=== PATIENT | male | born 1960 | race American Indian/Alaskan Native ===

== ENCOUNTER 2017-02-02 07:17 | Inpatient (IN) | payer OTHER ==
[2017-02-02] MEDS ORDERED: NACL 0.9% 1000 ML 1,000 ML ONE ×4 (07:37→13:58)
[2017-02-02] MEDS ORDERED: NACL 0.9% 1000 ML 1,000 ML IV SCH (08:00)
[2017-02-02 08:01] LABS: Basophils % (Auto) 0.9 % (0.0-1.8); Eosinophils % (Auto) 1.1 % (0.0-4.3); Hematocrit 45.1 % (35.5-45.6); Hemoglobin 14.9 gm/dl (11.8-15.2); Mean Corpuscular HGB Conc 33 % (32-34); Mean Corpuscular Hemoglobin 29 pg (28-32); Mean Corpuscular Volume 87 fl (84-94); Platelet Count 179 K/mm3 (140-440); Red Blood Count 5.17 M/mm3 (3.65-5.03); Red Cell Distribution Width 15.2 % (13.2-15.2); White Blood Count 7.7 K/mm3 (4.5-11.0)
[2017-02-02 08:13] LABS: Anion Gap 21 mmol/L; BUN/Creatinine Ratio 8.46; Blood Urea Nitrogen 11 mg/dL (9-20); Calcium 8.7 mg/dL (8.4-10.2); Carbon Dioxide 21 mmol/L (22-30); Chloride 105.9 mmol/L (98-107); Glucose 156 mg/dL (75-100); INR 0.98 (0.87-1.13); Partial Thromboplastin Time 27.2 Sec. (24.2-36.6); Sodium 144 mmol/L (137-145)
--- NOTE | 2017-02-02 08:35 | Admit Criteria Form ---
Admission Criteria Documentation: PULMONARY EMBOLISM Clinical Indications for Admission to Inpatient Care (Place 'X' for any and all applicable criteria): Admission is indicated for 1 or more of the following(1)(2)(3)(4)(5)(6)(7) [ ]I. Hypoxemia [ ]II. Vital sign abnormality (8) indicated by ALL of the following: [ ]a) Vital sign findings not as expected for chronic patient condition or baseline (eg, intentionally low, blood pressure in heart failure) [ ]b) Vital sign abnormality as indicated by 1 or more of the following [ ]l) Tachycardia [ ]ll) Hypotension [ ]lll) Orthostatic vital sign changes [ ]III. History of cancer [ ]IV. History of chronic cardiopulmonary disease (eg. CHF, coronary artery disease, COPD, cor pulmonale) [ ]V. Cardiac arrhythmias of intermediate concern [ ]. Right ventricular dysfunction (eg, by echocardiogram) [X ]VII. Positive cardiac biomarker (eg, troponin T or I > 0.1 ng/mL (mcg/L) , highly sensitive troponin I assay greater than 0.014 ng/mL (mcg/L), BNP or NT proBNP > assay threshold)(8 )(10)(11) [ ]VIII. Need for IV narcotics (eg, to treat dyspnea) 1 or more of following: [ ]a) Bleeding before anticoagulation [ ]b) Recent surgery (eg, within 3 months) that increases risk of catastrophic bleeding (eg, spinal surgery, intracranial surgery, cardiovascular surgery) [ ]c) Recent GI bleeding (eg, within 3 months) or known increased risk of GI bleed (eg,esophageal varices, current ulcer) [ ]d) Recent (eg, within 3 months) ischemic stroke [ ]e) History of intracranial bleeding (eg, hemorrhagic stroke) [ ]f) History of active bleeding when anticoagulated [ ]g) Active substance abuse [ ]h) Other risk factor thought to place patient at high risk such that ability to rapidly reverse reversal agent) [ ]X. Documented extensive thrombosis (eg, clot in vena cava or above iliofemoral bifurcation) [ X]Xl. Thrombolysis (eg, catheter-directed) or pharmacomechanical thrombectomy needed[A][B](8) [ ]XIl. Vena cava filter placement needed (eg, unable to anticoagulate)[C](8) [ ]Xlll. with delivery planned (eg, 37 or more weeks' gestation)(14 ) [ ]XlV. Limb-threatening thrombosis (eg, phlegmasia cerula dolens) [ ]XV. Embolism while on anti-coagulation [ ]XVl. Contraindication to outpatient use of medication with rapid anticoagulation effect as indicated by ALL of the following: [ ] a) Contraindication to use of yop-naoirfmxs-puxcrr heparin[E][F ] indicated by 1 or more of the following(16): [ ] i) Documented current or history of heparin-induced thrombocytopenia(15) [ ] ii) Severe thrombocytopenia (eg, platelet count less than 50 ,000/mm3 (50 x109/L)) [ ] iii) Allergy to heparin, ovn-defscgkjx-fpqkrd heparin, or product component [ ] iv) Renal failure (creatinine clearance less than 30 mL/min/ 1.73m2 (0.50 mL/sec/1.73m2) or on dialysis) [ ] v) Need for neuraxial anesthesia or spinal puncture anticipated [ ] vi) Inability to manage self-injection (eg. By patient, caregiver, or visiting nurse) [ ] b) Contraindication to use of fondaparinux indicated by 1 or more of the following: [ ] i) Documented current or history of heparin-induced thrombocytopenia (15) [ ] ii) Severe thrombocytopenia (eg, platelet count less than 50 ,000/mm3 (50 x109/L)) [ ] iii) Allergy to fondaparinux, related drugs, or product components [ ] iv) Renal failure (creatinine clearance less than 30 mL/min/ 1.73m2 (0.50 mL/sec/1.73m2) or on dialysis) [ ] v) [ ] vi) Liver disease with coagulopathy (eg, elevated INR due to liver disease) [ ] vii) Mechanical heart valve [ ] viii) Need for neuraxial anesthesia or spinal puncture anticipated [ ] xi) Inability to manage self-injection (eg, by patient, caregiver, or visiting nurse) [ ] c) Contraindication to use of an oral direct thrombin inhibitor (eg, dabigatran) or an oral coagulation factor Xa inhibitor (eg, rivaroxaban, apixaban)[E][F] indicated by 1 or more of the following(17)(18): [ ] i) Severe thrombocytopenia (eg, platelet count less than 50, 000/mm3 (50 x109/L)) [ ] ii) Allergy to medication or product components x109/L)) [ ] iii) Renal failure (creatinine clearance less than 30 mL/min /1.73m2 (0.50 mL/sec/1.73m2) or on dialysis) [ ] iv) [ ] v) Liver disease with coagulopathy (eg, elevated INR due to liver disease) [ ] vi) Mechanical heart valve [ ] vii) Need for neuraxial anesthesia or spinal puncture anticipated [ ]XVll. Inpatient admission required rather than observation care (Also use Pulmonary Embolism: Observation Care guideline as appropriate) because of ANY ONE of the following: [ ] a) Significant autoimmune (thrombocytopenia) or coagulopathic reaction occurs in response to anticoagulation [ ] b) Respiratory symptoms (eg, tachypnea, dyspnea) that are severe or persistent [ ] c) Other condition, treatment, or monitoring requiring inpatient admission The original [employer] content created by [employer] has been revised. The portions of the content which have been revised are identified through the use of italic text or in bold, and [facility] has neither reviewed nor approved the modified material. All other unmodified content is copyright [facility]. Please see references footnoted in the original [facility] edition 2017
--- NOTE | 2017-02-02 08:55 | Emergency Department Report ---
ED Chest Pain HPI - General Chief Complaint: Chest Pain Stated Complaint: CHEST PAIN Time Seen by Provider: 02/02/17 08:17 Source: patient Mode of arrival: Wheelchair Limitations: No Limitations - History of Present Illness Initial Comments: This is a 56-year-old -[place] male presents the emergency department, driven in by his daughter, with complaint of left-sided chest pain that began this morning around 2 AM. It is associated with coughing, shortness of breath and some dizziness. The dizziness started later, around 6:30 AM, once the patient got up to try and walk around. He did not take anything for symptoms prior to presentation. He is a tobacco smoker. He has a past medical history of gout, hypertension and a TIA. He does not have a primary care doctor. No recent travel or sick contacts at home. He denies any history of [place], PE/DVT. Severity scale (0 -10): 10 - Related Data Home Medications Medication Instructions Recorded Confirmed Last Taken Lisinopril [Zestril TAB] 40 mg PO DAILY 09/29/13 02/02/17 02/01/17 Ascorbic Acid [Vitamin C] 500 mg PO QDAY 02/02/17 02/02/17 02/01/17 Calcium Carbonate [Calcium] 600 mg PO DAILY 02/02/17 02/02/17 02/01/17 Lactobacillus Acidophilus 1 each PO DAILY 02/02/17 02/02/17 02/01/17 [Probiotic] Methylcellulose [Fiber] 500 mg PO DAILY 02/02/17 02/02/17 02/01/17 Vitamin E (Dl,Tocopheryl Acet) 100 unit PO DAILY 02/02/17 02/02/17 02/01/17 [Vitamin E] amLODIPine [Norvasc] 10 mg PO DAILY 02/02/17 02/02/17 02/01/17 Allergies Allergy/AdvReac Type Severity Reaction Status Date / Time No Known Allergies Allergy Verified 02/02/17 07:29 Heart Score - HEART Score History: Moderately suspicious EKG: Non-specific Age: 45-65 Risk factors: 1-2 risk factors Troponin: < normal limit HEART Score: 4 - Critical Actions Critical Actions: 4-6 pts:12-16.6% risk of adverse cardiac event. Should be admitted ED Review of Systems ROS: Stated complaint: CHEST PAIN Other details as noted in HPI Comment: All other systems reviewed and negative Constitutional: denies: chills, fever Eyes: denies: eye pain, eye discharge, vision change ENT: denies: ear pain, throat pain Respiratory: shortness of breath. denies: cough Cardiovascular: chest pain. denies: palpitations Gastrointestinal: denies: abdominal pain, nausea, diarrhea Genitourinary: denies: urgency, dysuria Musculoskeletal: denies: back pain, joint swelling, arthralgia Skin: denies: rash, lesions Neurological: other (dizziness). denies: headache, weakness, paresthesias ED Past Medical Hx - Past Medical History Hx Hypertension: Yes Additional medical history: gout. TIA - Surgical History Past Surgical History?: No - Social History Smoking Status: Current Every Day Smoker Substance Use Type: None - Medications Home Medications: Home Medications Medication Instructions Recorded Confirmed Last Taken Type Lisinopril [Zestril TAB] 40 mg PO DAILY 09/29/13 02/02/17 02/01/17 History Ascorbic Acid [Vitamin C] 500 mg PO QDAY 02/02/17 02/02/17 02/01/17 History Calcium Carbonate [Calcium] 600 mg PO DAILY 02/02/17 02/02/17 02/01/17 History Lactobacillus Acidophilus 1 each PO DAILY 02/02/17 02/02/17 02/01/17 History [Probiotic] Methylcellulose [Fiber] 500 mg PO DAILY 02/02/17 02/02/17 02/01/17 History Vitamin E (Dl,Tocopheryl Acet) 100 unit PO DAILY 02/02/17 02/02/17 02/01/17 History [Vitamin E] amLODIPine [Norvasc] 10 mg PO DAILY 02/02/17 02/02/17 02/01/17 History ED Physical Exam - General Limitations: No Limitations - Other Other exam information: GENERAL: The patient is well-developed well-nourished. HEENT: Normocephalic. Atraumatic. Extraocular motions are intact. Patient has moist mucous membranes. Pupils equal reactive to light bilaterally. NECK: Supple. Trachea is midline. CHEST/LUNGS: Clear to auscultation. There is no respiratory distress noted. Chest pain is not reproducible to palpation of the chest wall. HEART/CARDIOVASCULAR: Regular. There is no tachycardia. There is no gallop rub or murmur. ABDOMEN: Abdomen is soft, nontender. Patient has normal bowel sounds. There is no abdominal distention. SKIN: Skin is warm and dry. NEURO: The patient is awake, alert, and oriented. The patient is cooperative. The patient has no focal neurologic deficits. The patient has normal speech. MUSCULOSKELETAL: There is no tenderness or deformity. There is no limitation range of motion. There is no evidence of acute injury. ED Course Vital Signs 02/02/17 02/02/17 07:31 07:54 Temperature 97.5 F L 98.4 F Pulse Rate 94 H 94 H Respiratory 22 14 Rate Blood Pressure 90/63 Blood Pressure 89/68 [Left] O2 Sat by Pulse 92 95 Oximetry - Consultations Consultation #1: 02/02/17 11:[address] Brown, the vascular/IR attending, who will come and see the patient in the emergency department and may proceed to ECOS catheter. DAWOOD score - Dawood Score Age > 65: (0) No Aspirin use within the Past 7 Days: (0) No 3 or more CAD Risk Factors: (0) No 2 or more Angina events in past 24 hrs: (1) Yes Known CAD with more than 50% Stenosis: (0) No Elevated Cardiac Markers: (0) No ST Deviation Greater than 0.5mm: (0) No DAWOOD Score: 1 ED Medical Decision Making - Lab Data Result diagrams: 02/02/17 07:39 02/02/17 07:44 - EKG Data -: EKG Interpreted by Me EKG shows normal: sinus rhythm, axis (left axis deviation), intervals, QRS complexes (Q waves to the anterior and inferior leads), ST-T waves (T-wave inversion to the inferior leads) Rate: normal - EKG Data When compared to previous EKG there are: previous EKG unavailable Interpretation: other (sinus rhythm, LVH, Q waves to the anterior and inferior leads, T-wave inversions to the inferior leads) - Radiology Data Radiology results: report reviewed, image reviewed interpreted by me: Chest x-ray did not show any acute process. Heart is normal shape and size. No effusions. No pneumothorax. No signs of pneumonia seen. CT angiography of the chest shows extensive bilateral pulmonary emboli extending to the first and second order branches of all lobes. Saddle embolus is also identified. These emboli are nearly occlusive in the lower lobes. - Medical Decision Making 56-year-old male presents with chest pain and shortness of breath that started this morning around 2 AM. He also has been having some dizziness. EKG does not show any signs of ST elevation [place]. First troponin negative. However the d- dimer is very elevated. CT angiography was done that showed bilateral pulmonary emboli and saddle embolus. Vascular surgery/INR was contacted who took the patient for the EKOS catheter in the [facility]. Patient admitted to the hospitalist and accepted by Dr. Limon. - Differential Diagnosis [place], PE, pneumonia, CHF Critical Care Time: No Critical care attestation.: If time is entered above; I have spent that time in minutes in the direct care of this critically ill patient, excluding procedure time. ED Disposition Clinical Impression: Bilateral pulmonary embolism Saddle embolism of pulmonary artery Qualifiers: Chronicity: acute Acute cor pulmonale presence: without acute cor pulmonale Qualified Code(s): I26.92 - Saddle embolus of pulmonary artery without acute cor pulmonale Chest pain Qualifiers: Chest pain type: unspecified Qualified Code(s): R07.9 - Chest pain, unspecified Disposition: DC-09 OP ADMIT IP TO THIS HOSP Is pt being admited?: Yes Condition: Fair
--- NOTE | 2017-02-02 09:06 | XRay Report ---
AP CHEST: HISTORY: chest pain AP view of the chest demonstrates a normal mediastinal and cardiac contour with clear lungs and normal bony and soft tissue structures. IMPRESSION: Unremarkable AP chest.
--- NOTE | 2017-02-02 10:48 | Cat Scan Report ---
CTA CHEST: History: Chest pain, shortness of breath Technique: Helical CT following IV contrast. Pulmonary embolus protocol. Sagittal and coronal reformatted images. Rotational MIP images. Findings: Contrast bolus is satisfactory. Extensive bilateral pulmonary emboli are identified extending to the first and second order branches of all lobes. Saddle embolus is also identified. These emboli or nearly occlusive in the lower lobes. The thyroid gland, tracheobronchial tree, esophagus, heart, pericardium, aorta, lung carty and bony thorax are unremarkable. Impression: Positive for extensive bilateral pulmonary emboli as described. These findings were discussed with Dr. Smart in the emergency department at 1045 hrs.
[2017-02-02] MEDS ORDERED: HEPARIN 10,000 UNITS/10 ML IV ONE (10:57)
[2017-02-02] MEDS ORDERED: HEPARIN/ 0.45% NACL-25,000 UNIT/500 ML 25,000 UNITS/500 ML BAG IV SCH (11:00)
[2017-02-02 11:40] LABS: INR 1.04 (0.87-1.13)
[2017-02-02 11:41] LABS: Partial Thromboplastin Time 28.3 Sec. (24.2-36.6)
[2017-02-02] MEDS ORDERED: ALUM-MAG HYDROX-SIMETH 200-200-20MG/5ML PO PRN (12:29)
[2017-02-02] MEDS ORDERED: MILK OF MAGNESIA PO PRN (12:29)
[2017-02-02] MEDS ORDERED: DULCOLAX PR PRN (12:29)
[2017-02-02] MEDS ORDERED: DUONEB *Not for PRN Use IH (12:29)
--- NOTE | 2017-02-02 12:35 | History and Physical Report ---
History of Present Illness Chief complaint: It hurts when i breathe, and now my chest hurts History of present illness: 56 YO Male with HTN, Gout, CVA, Nicotine Dependence presents to ED for evaluation. Pt states that he experienced difficulty breathing, and pain in his chest that began around 0200hrs that awoke him from sleep with worsening symptoms over the past 4 hours. Pt presents to ED for evaluation. Pt states that pain is 8/10, localized to the left side, worse with deep breathing, not worsened with exertion, or relieved with rest. Pt seen and evaluated in ED and found to be in respiratory distress. Pt placed on supplemental oxygen. Pt underwent CT angio chest which revealed large Bilateral PE, and evidence of heart strain. Vascular team consulted, and patient taken to [facility] for EKOS therapy. Past History Past Medical History: hypertension, stroke Past Surgical History: No surgical history, Other (reviewed) Social history: , lives with family, smoking Family history: diabetes, hypertension Medications and Allergies Allergies Allergy/AdvReac Type Severity Reaction Status Date / Time No Known Allergies Allergy Verified 02/02/17 07:29 Home Medications Medication Instructions Recorded Confirmed Last Taken Type Lisinopril [Zestril TAB] 40 mg PO DAILY 09/29/13 02/02/17 02/01/17 History Ascorbic Acid [Vitamin C] 500 mg PO QDAY 02/02/17 02/02/17 02/01/17 History Calcium Carbonate [Calcium] 600 mg PO DAILY 02/02/17 02/02/17 02/01/17 History Lactobacillus Acidophilus 1 each PO DAILY 02/02/17 02/02/17 02/01/17 History [Probiotic] Methylcellulose [Fiber] 500 mg PO DAILY 02/02/17 02/02/17 02/01/17 History Vitamin E (Dl,Tocopheryl Acet) 100 unit PO DAILY 02/02/17 02/02/17 02/01/17 History [Vitamin E] amLODIPine [Norvasc] 10 mg PO DAILY 02/02/17 02/02/17 02/01/17 History Active Meds: Active Medications Al Hydrox/Mg Hydrox/Simethicone (Alum-Mag Hydrox-Simeth [id number]/5ml) 30 ml PO Q4H PRN PRN Reason: Indigestion Albuterol/Ipratropium (Duoneb 0.5 Mg-3 Mg/3 Ml Soln) 1 ampul IH Q6HRT PRN PRN Reason: Wheezing Amlodipine Besylate (Norvasc) 10 mg PO DAILY [facility] Ascorbic Acid (Vitamin C) 500 mg PO QDAY [facility] Bisacodyl (Dulcolax) 10 mg SD QDAY PRN PRN Reason: constipation unrelieved by MOM Hydromorphone HCl (Dilaudid) 0.25 mg IV Q3H PRN PRN Reason: Pain, Moderate (4-6) Sodium Chloride (Nacl 0.9% 1000 Ml) 1,000 mls @ 100 mls/hr IV DIRECT [facility] Heparin Sodium/Sodium Chloride (Heparin/ 0.45% Nacl-25,000 Unit/500 Ml) 25,000 units in 500 mls @ 30 mls/hr IV TITR [facility]; 1,500 UNITS/HR PRN Reason: Protocol Last Admin: 02/02/17 11:28 Dose: 1,500 units/hr, 30 mls/hr Lisinopril (Zestril) 40 mg PO DAILY [facility] Magnesium Hydroxide (Milk Of Magnesia) 30 ml PO Q4H PRN PRN Reason: Constipation Miscellaneous Medication (Lactobacillus Acidophilus [Probiotic]) 1 each PO DAILY [facility] Miscellaneous Medication (Methylcellulose [Fiber]) 500 mg PO DAILY [facility] Miscellaneous Medication (Vitamin E (Dl,Tocopheryl Acet) [Vitamin E]) 100 unit PO DAILY [facility] Review of Systems All systems: negative Cardiovascular: shortness of breath Exam - Constitutional Vitals: Temp Pulse Resp BP Pulse Ox 97.9 F 92 H 21 118/80 94 02/02/17 10:30 02/02/17 11:30 02/02/17 11:30 02/02/17 11:30 02/02/17 11:30 General appearance: Present: mild distress - EENT Eyes: Present: PERRL ENT: hearing intact, clear oral mucosa - Neck Neck: Present: supple, normal ROM - Respiratory Respiratory effort: normal Respiratory: bilateral: diminished - Cardiovascular Heart Sounds: Present: S1 & S2. Absent: rub, click - Extremities Extremities: pulses symmetrical, No edema Peripheral Pulses: within normal limits - Abdominal General gastrointestinal: Present: soft, non-tender, non-distended, normal bowel sounds Male genitourinary: Present: normal - Integumentary Integumentary: Present: clear, warm, dry - Musculoskeletal Musculoskeletal: gait normal, strength equal bilaterally - Psychiatric Psychiatric: appropriate mood/affect, intact judgment & insight - Neurologic Neurologic: CNII-XII intact, moves all extremities Results - Labs CBC & Chem 7: 02/02/17 19:28 02/03/17 02:57 Labs: Abnormal lab results 02/02/17 02/02/17 02/02/17 Range/Units 07:39 07:44 07:44 RBC 5.17 H (3.65-5.03) M/mm3 D-Dimer 3273.92 H (0-234) ng/mlDDU Carbon Dioxide 21 L (22-30) mmol/L Glucose 156 H (75-100) mg/dL POC Glucose (70-105) 02/02/17 Range/Units 07:50 RBC (3.65-5.03) M/mm3 D-Dimer (0-234) ng/mlDDU Carbon Dioxide (22-30) mmol/L Glucose (75-100) mg/dL POC Glucose 157 H (70-105) Assessment and Plan - Patient Problems (1) Acute respiratory failure with hypoxemia Current Visit: Yes Status: Acute Plan to address problem: supplemental oxygen, nebs, aspiration precautions, pulmonary consulted, NIPPV as clinically indicated. The high probability of a clinically significant, sudden or life threatening deterioration of the [pulmonary, cardiac] system(s) required my full and direct attention, intervention and personal management. The aggregate critical care time was [65] minutes. This time is in addition to time spent performing reported procedures but includes the following: [x] Data Review and interpretation [x] Patient assessment and monitoring of vital signs [x] Documentation [x] Medication orders and management (2) HTN (hypertension) Current Visit: Yes Status: Acute Qualifiers: Hypertension type: H Plan to address problem: Monitor bp q shift, resume home medication (3) Nicotine dependence Current Visit: Yes Status: Acute Qualifiers: Nicotine product type: N Substance use status: in withdrawal Plan to address problem: Pt counseled, (4) Gout Current Visit: Yes Status: Acute Qualifiers: Gout site: G Gout etiology: G Encounter type: E Chronicity: C Laterality: L Presence of tophus: P Plan to address problem: pain control, supportive care. (5) Bilateral pulmonary embolism Current Visit: Yes Status: Acute Plan to address problem: S/P EKOS therapy, IR consulted, heparin drip, (6) DVT prophylaxis Current Visit: Yes Status: Acute
[2017-02-02] MEDS ORDERED: PROVENTIL IH PRN (12:40)
[2017-02-02] MEDS ORDERED: HEPARIN/ 0.45% NACL-25,000 UNIT/500 ML 25,000 UNIT/500 ML BAG ONE ×2 (12:51→13:04)
[2017-02-02] MEDS ORDERED: XYLOCAINE 2% INFILTRATI ONE (12:52)
[2017-02-02] MEDS ORDERED: HEPARIN 10,000 UNITS/10 ML ONE (12:52)
[2017-02-02] MEDS ORDERED: ANCEF/STERILE WATER 2 GM/20 ML 2 GM/20 ML SYRINGE IV ONE (12:53)
[2017-02-02] MEDS ORDERED: HEPARIN/NS 5000 UNIT/500ML(CATH LAB) 1,000 ML IR ONE (12:55)
--- NOTE | 2017-02-02 13:08 | Consultation ---
History of Present Illness - Reason for Consult Consult date: 02/02/17 - History of Present Illness This is a 56-year-old male who began to feel left-sided chest pain, shortness of breath, and dizziness around 2:00 this morning. He denies ever having this type of sensation before. He came to the ER, and CT angiography revealed a large saddle pulmonary embolus with extension into the segmental branches on both sides. His currently hemodynamically stable. His main complaint is chest pain, especially during inspiration. He is currently not on any type of anticoagulation at home. He denies history of hemorrhagic stroke or gastrointestinal bleeding. He also denies history of clotting disorders. Medications and Allergies Allergies Allergy/AdvReac Type Severity Reaction Status Date / Time No Known Allergies Allergy Verified 02/02/17 07:29 Home Medications Medication Instructions Recorded Confirmed Last Taken Type Lisinopril [Zestril TAB] 40 mg PO DAILY 09/29/13 02/02/17 02/01/17 History Ascorbic Acid [Vitamin C] 500 mg PO QDAY 02/02/17 02/02/17 02/01/17 History Calcium Carbonate [Calcium] 600 mg PO DAILY 02/02/17 02/02/17 02/01/17 History Lactobacillus Acidophilus 1 each PO DAILY 02/02/17 02/02/17 02/01/17 History [Probiotic] Methylcellulose [Fiber] 500 mg PO DAILY 02/02/17 02/02/17 02/01/17 History Vitamin E (Dl,Tocopheryl Acet) 100 unit PO DAILY 02/02/17 02/02/17 02/01/17 History [Vitamin E] amLODIPine [Norvasc] 10 mg PO DAILY 02/02/17 02/02/17 02/01/17 History Active Meds: Active Medications Al Hydrox/Mg Hydrox/Simethicone (Alum-Mag Hydrox-Simeth [id number]/5ml) 30 ml PO Q4H PRN PRN Reason: Indigestion Albuterol (Proventil) 2.5 mg IH Q4HRT PRN PRN Reason: Shortness Of Breath Amlodipine Besylate (Norvasc) 10 mg PO DAILY [facility] Ascorbic Acid (Vitamin C) 500 mg PO QDAY [facility] Bisacodyl (Dulcolax) 10 mg CA QDAY PRN PRN Reason: constipation unrelieved by MOM Hydromorphone HCl (Dilaudid) 0.25 mg IV Q3H PRN PRN Reason: Pain, Moderate (4-6) Sodium Chloride (Nacl 0.9% 1000 Ml) 1,000 mls @ 100 mls/hr IV DIRECT [facility] Heparin Sodium/Sodium Chloride (Heparin/ 0.45% Nacl-25,000 Unit/500 Ml) 25,000 units in 500 mls @ 30 mls/hr IV TITR [facility]; 1,500 UNITS/HR PRN Reason: Protocol Last Admin: 02/02/17 11:28 Dose: 1,500 units/hr, 30 mls/hr Lisinopril (Zestril) 40 mg PO DAILY [facility] Magnesium Hydroxide (Milk Of Magnesia) 30 ml PO Q4H PRN PRN Reason: Constipation Miscellaneous Medication (Lactobacillus Acidophilus [Probiotic]) 1 each PO DAILY [facility] Miscellaneous Medication (Methylcellulose [Fiber]) 500 mg PO DAILY [facility] Miscellaneous Medication (Vitamin E (Dl,Tocopheryl Acet) [Vitamin E]) 100 unit PO DAILY [facility] Exam - Constitutional Vitals: Temp Pulse Resp BP Pulse Ox 97.9 F 92 H 21 118/80 94 02/02/17 10:30 02/02/17 11:30 02/02/17 11:30 02/02/17 11:30 02/02/17 11:30 Results - Labs CBC & Chem 7: 02/02/17 07:39 02/02/17 07:44 Labs: Abnormal lab results 02/02/17 02/02/17 02/02/17 Range/Units 07:39 07:44 07:44 RBC 5.17 H (3.65-5.03) M/mm3 D-Dimer 3273.92 H (0-234) ng/mlDDU Carbon Dioxide 21 L (22-30) mmol/L Glucose 156 H (75-100) mg/dL POC Glucose (70-105) Troponin T (0.00-0.029) ng/mL 02/02/17 02/02/17 Range/Units 07:50 10:42 RBC (3.65-5.03) M/mm3 D-Dimer (0-234) ng/mlDDU Carbon Dioxide (22-30) mmol/L Glucose (75-100) mg/dL POC Glucose 157 H (70-105) Troponin T 0.035 H D (0.00-0.029) ng/mL Assessment and Plan This is a 56-year-old male with a large saddle pulmonary embolus extending into the segmental branches bilaterally. He is currently hemodynamically stable. The combination of imaging findings and current symptoms of coughing, pleuritic chest pain, and shortness of breath warrant treatment with ultrasound assisted thrombolysis. We will proceed to Ekos catheter placement. Informed consent was obtained.
[2017-02-02] MEDS: SUBLIMAZE ONE ×2 (13:12→13:41)
[2017-02-02] MEDS: VERSED ONE ×2 (13:12→13:41)
[2017-02-02] MEDS ORDERED: CATHFLO ONE (13:19)
[2017-02-02] MEDS ORDERED: WATER FOR INJ (PF) 10 ML ONE (13:20)
[2017-02-02] MEDS ORDERED: ZOFRAN IV PRN (14:19)
--- NOTE | 2017-02-02 14:28 | Operative Report ---
Operative Report Operative Report: Procedure: 1. Ultrasound-guided access of the right common femoral vein. 2. Selective left and right pulmonary angiography. 3. Placement of bilateral EKos ultrasonic infusion catheters. Date of procedure: 02/02/2017 Physician: Fco Ruiz MD Indication: This is a 56-year-old male who experienced chest pain and shortness of breath at 2:[address] angiography revealed a large saddle pulmonary embolus with extension into the segmental branches. Procedure: The patient was placed in the supine position and prepped and draped in the usual sterile fashion. A timeout was performed. Local anesthesia was administered. Under continuous ultrasound guidance, the right common femoral vein was cannulated with an 18-gauge needle. This was exchanged over a short 035 wire for a 6 Lao vascular sheath. A second vascular sheath was placed in a similar fashion approximately half a centimeter below the first one. The combination of a JR 4 catheter and Darden wire was advanced into the right ventricle and ultimately used to select the left main pulmonary artery. Left pulmonary arteriography was performed from multiple positions. The JR4 catheter was then replaced with the EKos IDDC catheter. The micro-sonic delivery catheter was then inserted and secured. A similar combination of steps was performed through the second vascular sheath for the right pulmonary artery. Both vascular sheaths and the IDDC catheters were secured to the skin and to each other with 2-0 Ethilon suture and Steri-Strips. A 4 mg bolus of TPA was infused into each catheter. Heparin flush was infused into each femoral sheath. Sterile dressings were applied, and the patient was transferred off the table in stable condition. Findings: Pulmonary arteriography demonstrates multiple, large filling defects in both the right and left pulmonary arteries, extending into the segmental branches. This is consistent with findings on a recent CT angiography from earlier today. There is successful placement of bilateral EKos catheters in the pulmonary arteries.
[2017-02-02] MEDS ORDERED: CATHFLO 10 MG in NACL 0.9% 250ML 250 ML EKOSDLUMEN SCH (15:00)
[2017-02-02] MEDS ORDERED: NACL 0.9% 1000 ML 1,000 ML EKOSCLUMEN SCH ×2 (15:00)
[2017-02-02] MEDS ORDERED: HEPARIN/ 0.45% NACL-25,000 UNIT/500 ML 25,000 UNIT/500 ML BAG SHEATH SCH ×2 (15:00)
[2017-02-02] MEDS ORDERED: NACL 0.9% 1000 ML 1,000 ML SHEATH SCH ×2 (15:00)
[2017-02-02] MEDS ORDERED: CATHFLO 10 MG in NACL 0.9% 250ML 250 ML IV SCH (15:00)
[2017-02-02] MEDS: NACL 0.9% 1000 ML 1,000 ML IV SCH ×2 (15:13→18:14)
[2017-02-02] MEDS ORDERED: NORCO 5/325 ONE (15:48)
[2017-02-02 15:50] LABS: Anion Gap 19 mmol/L; Basophils % (Auto) 0.7 % (0.0-1.8); Blood Urea Nitrogen 9 mg/dL (9-20); Calcium 8.9 mg/dL (8.4-10.2); Carbon Dioxide 23 mmol/L (22-30); Chloride 105.4 mmol/L (98-107); Eosinophils % (Auto) 0.2 % (0.0-4.3); Glucose 119 mg/dL (75-100); Hematocrit 46.7 % (35.5-45.6); Hemoglobin 15.4 gm/dl (11.8-15.2); Mean Corpuscular HGB Conc 33 % (32-34); Mean Corpuscular Hemoglobin 29 pg (28-32); Mean Corpuscular Volume 88 fl (84-94); Platelet Count 165 K/mm3 (140-440); Potassium 4.4 mmol/L (3.6-5.0); Red Blood Count 5.32 M/mm3 (3.65-5.03); Red Cell Distribution Width 15.4 % (13.2-15.2); Sodium 143 mmol/L (137-145); White Blood Count 9.5 K/mm3 (4.5-11.0)
[2017-02-02] MEDS: NORCO 5/325 PO PRN ×2 (15:52→21:49)
[2017-02-02 15:59] LABS: INR 1.14 (0.87-1.13)
[2017-02-02] MEDS: ZESTRIL PO SCH (17:02)
[2017-02-02] MEDS: NORVASC PO SCH (17:04)
--- NOTE | 2017-02-02 17:42 | Vascular Lab Report ---
MISCELLANEOUS VESSEL IDENTIFICATION: COMMENTS ON THE SCAN: The right common femoral vein was identified and under real-time ultrasound guidance was cannulated. IMPRESSION: Successful ultrasound guided vein cannulation.
[2017-02-02 20:03] LABS: Basophils % (Auto) 0.4 % (0.0-1.8); Eosinophils % (Auto) 0.2 % (0.0-4.3); Hematocrit 46.4 % (35.5-45.6); Hemoglobin 15.2 gm/dl (11.8-15.2); Mean Corpuscular HGB Conc 33 % (32-34); Mean Corpuscular Hemoglobin 29 pg (28-32); Mean Corpuscular Volume 90 fl (84-94); Platelet Count 153 K/mm3 (140-440); Red Blood Count 5.18 M/mm3 (3.65-5.03); Red Cell Distribution Width 15.2 % (13.2-15.2); White Blood Count 9.4 K/mm3 (4.5-11.0)
[2017-02-02] MEDS ORDERED: MORPHINE IV ONE (22:08)
[2017-02-03 03:54] LABS: Anion Gap 18 mmol/L; Blood Urea Nitrogen 10 mg/dL (9-20); Calcium 8.4 mg/dL (8.4-10.2); Carbon Dioxide 23 mmol/L (22-30); Chloride 102.8 mmol/L (98-107); Glucose 169 mg/dL (75-100); Potassium 3.7 mmol/L (3.6-5.0); Sodium 140 mmol/L (137-145)
[2017-02-03] MEDS: APRESOLINE IV PRN ×2 (07:25→15:33)
[2017-02-03] MEDS: DILAUDID IV PRN ×3 (07:46→23:36)
[2017-02-03 08:05] LABS: Basophils % (Auto) 0.6 % (0.0-1.8); Eosinophils % (Auto) 0.7 % (0.0-4.3); Hematocrit 46.3 % (35.5-45.6); Hemoglobin 15.2 gm/dl (11.8-15.2); Mean Corpuscular HGB Conc 33 % (32-34); Mean Corpuscular Hemoglobin 29 pg (28-32); Mean Corpuscular Volume 88 fl (84-94); Platelet Count 137 K/mm3 (140-440); Red Blood Count 5.24 M/mm3 (3.65-5.03); Red Cell Distribution Width 15.2 % (13.2-15.2); White Blood Count 9.1 K/mm3 (4.5-11.0)
--- NOTE | 2017-02-03 09:07 | Progress Note ---
Assessment and Plan Assessment and plan: (1) Acute respiratory failure with hypoxemia Current Visit: Yes Status: Acute Plan to address problem: supplemental oxygen, nebs, aspiration precautions, pulmonary consulted, NIPPV as clinically indicated. (2) Bilateral pulmonary embolism Current Visit: Yes Status: Acute Plan to address problem: S/P EKOS therapy, heparin drip, (3) HTN (hypertension) Current Visit: Yes Status: Acute Qualifiers: Hypertension type: H Plan to address problem: Monitor bp q shift, resume home medication (4) Nicotine dependence Current Visit: Yes Status: Acute Qualifiers: Nicotine product type: N Substance use status: in withdrawal Plan to address problem: Pt counseled, (5) Gout Current Visit: Yes Status: Acute Qualifiers: Gout site: G Gout etiology: G Encounter type: E Chronicity: C Laterality: L Presence of tophus: P Plan to address problem: pain control, supportive care. (6) DVT prophylaxis Current Visit: Yes Status: Acute The high probability of a clinically significant, sudden or life threatening deterioration of the [pulmonary, cardiac] system(s) required my full and direct attention, intervention and personal management. The aggregate critical care time was [35] minutes. This time is in addition to time spent performing reported procedures but includes the following: [x] Data Review and interpretation [x] Patient assessment and monitoring of vital signs [x] Documentation [x] Medication orders and management History Interval history: S/p Placement of bilateral EKos ultrasonic infusion catheters. For Bilateral PE Complaints of back pain.Cough present. 56 YO Male with HTN, Gout, CVA, Nicotine Dependence presents to ED for difficulty breathing, and pain in his chest that began around 0200hrs that awoke him from sleep with worsening symptoms over the past 4 hours. Pt states that pain is 8/10, localized to the left side, worse with deep breathing, not worsened with exertion, or relieved with rest. Found to be in respiratory distress. Pt placed on supplemental oxygen. Pt underwent CT angio chest which revealed large Bilateral PE, and evidence of heart strain. Vascular team consulted, and patient taken to cardiac cath lab radiology technologist for EKOS therapy. Hospitalist Physical - Physical exam Narrative exam: In some discomfort - Constitutional Vitals: Temp Pulse Resp BP Pulse Ox 98.2 F 102 H 20 167/120 96 02/03/17 08:00 02/03/17 07:25 02/03/17 06:00 02/03/17 07:25 02/03/17 08:01 General appearance: Present: mild distress - EENT Eyes: Present: PERRL, EOM intact ENT: hearing intact, clear oral mucosa, dentition normal - Neck Neck: Present: supple, normal ROM - Respiratory Respiratory effort: normal Respiratory: negative: CTA - Cardiovascular Heart rate: 72 Rhythm: regular - Extremities Extremities: pulses intact, pulses symmetrical Peripheral Pulses: within normal limits - Abdominal General gastrointestinal: soft, non-tender, non-distended, normal bowel sounds - Integumentary Integumentary: Present: clear, warm, dry, erythema - Psychiatric Psychiatric: appropriate mood/affect, intact judgment & insight, memory intact, cooperative - Neurologic Neurologic: CNII-XII intact, moves all extremities, gait normal - Allied Health Allied health notes reviewed: nursing, case management Results - Labs CBC & Chem 7: 02/03/17 07:40 02/03/17 02:57 Labs: Laboratory Last Values WBC 9.1 K/mm3 (4.5-11.0) 02/03/17 07:40 RBC 5.24 M/mm3 (3.65-5.03) H 02/03/17 07:40 Hgb 15.2 gm/dl (11.8-15.2) 02/03/17 07:40 Hct 46.3 % (35.5-45.6) H 02/03/17 07:40 MCV 88 fl (84-94) 02/03/17 07:40 MCH 29 pg (28-32) 02/03/17 07:40 MCHC 33 % (32-34) 02/03/17 07:40 RDW 15.2 % (13.2-15.2) 02/03/17 07:40 Plt Count 137 K/mm3 (140-440) L 02/03/17 07:40 Lymph % (Auto) 26.6 % (13.4-35.0) 02/03/17 07:40 Row[place] % (Auto) 5.1 % (0.0-7.3) 02/03/17 07:40 Eos % (Auto) 0.7 % (0.0-4.3) 02/03/17 07:40 Baso % (Auto) 0.6 % (0.0-1.8) 02/03/17 07:40 Lymph # 2.4 K/mm3 (1.2-5.4) 02/03/17 07:40 Rowan # 0.5 K/mm3 (0.0-0.8) 02/03/17 07:40 Eos # 0.1 K/mm3 (0.0-0.4) 02/03/17 07:40 Baso # 0.1 K/mm3 (0.0-0.1) 02/03/17 07:40 Seg Neutrophils % 67.0 % (40.0-70.0) 02/03/17 07:40 Seg Neutrophils # 6.1 K/mm3 (1.8-7.7) 02/03/17 07:40 PT 14.5 Sec. (12.2-14.9) 02/02/17 15:12 INR 1.14 (0.87-1.13) H 02/02/17 15:12 APTT 215.0 Sec. (24.2-36.6) H* 02/02/17 15:12 Fibrinogen 396 mg/dl (211-480) 02/03/17 07:40 D-Dimer 3273.92 ng/mlDDU (0-234) H 02/02/17 07:44 Heparin Anti-Xa Level 0.59 U.I./ml (0.3-0.7) 02/03/17 07:40 Sodium 140 mmol/L (137-145) 02/03/17 02:57 Potassium 3.7 mmol/L (3.6-5.0) 02/03/17 02:57 Chloride 102.8 mmol/L (98-107) 02/03/17 02:57 Carbon Dioxide 23 mmol/L (22-30) 02/03/17 02:57 Anion Gap 18 mmol/L 02/03/17 02:57 BUN 10 mg/dL (9-20) 02/03/17 02:57 Creatinine 1.0 mg/dL (0.8-1.5) 02/03/17 02:57 Estimated GFR > 60 ml/min 02/03/17 02:57 BUN/Creatinine Ratio 10.00 % 02/03/17 02:57 Glucose 169 mg/dL (75-100) H 02/03/17 02:57 POC Glucose 157 (70-105) H 02/02/17 07:50 Calcium 8.4 mg/dL (8.4-10.2) 02/03/17 02:57 Troponin T 0.139 ng/mL (0.00-0.029) H* D 02/02/17 15:12 NT-Pro-B Natriuret Pep 36.37 pg/mL (0-900) 02/02/17 07:44 Triglycerides 115 mg/dL (2-149) 02/02/17 10:42 Cholesterol 182 mg/dL (50-199) 02/02/17 10:42 LDL Cholesterol Direct 126 mg/dL (50-130) 02/02/17 10:42 HDL Cholesterol 33 mg/dL (40-59) L 02/02/17 10:42 Cholesterol/HDL Ratio 5.51 % 02/02/17 10:42 Blood Type A POSITIVE 02/02/17 11:03 Antibody Screen TNR 02/02/17 11:03 ILGIA Antibody Screen Negative 02/02/17 11:03
[2017-02-03] MEDS: ZESTRIL PO SCH (09:15)
[2017-02-03] MEDS: VITAMIN C PO SCH (09:15)
[2017-02-03] MEDS: NORVASC PO SCH (09:15)
[2017-02-03] MEDS: LACTINEX PO SCH (09:15)
[2017-02-03] MEDS ORDERED: VITAMIN E 100 UNIT PO SCH (10:00)
[2017-02-03] MEDS ORDERED: METHYLCELLULOSE 500 MG PO SCH (10:00)
[2017-02-03] MEDS ORDERED: LACTOBACILLUS ACIDOPHILUS PO SCH (10:00)
[2017-02-03] MEDS ORDERED: HEPARIN 10,000 UNITS/10 ML ONE (10:45)
[2017-02-03] MEDS ORDERED: NACL 0.9% 250ML 250 ML ONE (10:46)
[2017-02-03] MEDS ORDERED: XYLOCAINE 1%/ EPI 1:100,000 INFILTRATI ONE (10:46)
[2017-02-03] MEDS: VERSED ONE ×2 (11:02→11:15)
[2017-02-03] MEDS: SUBLIMAZE ONE ×2 (11:07→11:14)
--- NOTE | 2017-02-03 11:36 | Operative Report ---
Operative Report Operative Report: EXAM: 1. EKOS thrombolytic catheter removal from the left middle lobe segmental branch of the pulmonary artery 2. EKOS thrombolytic catheter removal from the right lower lobe segmental branch of the pulmonary artery 3. Selection of the left middle lobe segmental branch of the pulmonary artery with angiography 4. Selection of the right lower lobe segmental branch of the pulmonary artery with angiography 5. Selection of the left main pulmonary artery with angiography 6. Selection of the main pulmonary artery with angiography 7. Selection of the right interlobar pulmonary artery with angiography 7. Selection of the right main pulmonary artery with angiography DATE: 02/03/17 EMPLOYEE RELATIONS MANAGER: REJI WILDER MD INDICATION: Submassive pulmonary embolism with thrombolytic catheter removal and evaluation for residual thrombus for possible thrombectomy MEDICATIONS: Please see nursing report for full details. DEVICES: None CONTRAST: 85 mL nonionic contrast PROCEDURE: The risks, benefits, and alternatives were discussed with the patient; written informed consent was obtained. The patient was brought down to the angiography lab in stable condition. The patient's groins were prepped and draped in a sterile fashion the existing thrombolytic catheters were prepped and draped in sterile fashion. Fluoroscopy was used to evaluate the positioning of the catheters which appeared unchanged from the imaging noted prior. The thrombolytic catheter wire was removed from the left sided thrombolytic catheter. Blood was aspirated. Gentle angiography was performed demonstrating that the tip was within a segmental branch of the left middle lobe pulmonary artery which opacified with contrast. Darden wire was advanced to the catheter after it was slightly retracted and the catheter was removed over the wire. Wire was cleaned with ChloraPrep. The thrombolytic catheter wire was removed from the right sided thrombolytic catheter. Blood was aspirated. Gentle angiography was performed demonstrating that the tip was within a segmental branch of the right lower lobe pulmonary artery which opacified with contrast with a small subsgmental pulmonary emboli noted. Darden wire was advanced to the catheter after it was slightly retracted and the catheter was removed over the wire. Wire was cleaned with ChloraPrep. Over the first Darden wire, a 6 German ZAHEER guide which was straightened was advanced over the wire with a Symvato device. Catheter was used to select the left main pulmonary artery. Cineangiography was performed demonstrating no occlusive pulmonary emboli within the main, or lobar pulmonary arteries. There is slightly decreased flow through the lower lobar pulmonary artery suggestive of a nonocclusive pulmonary emboli. The catheter was retracted to the main pulmonary artery, and angiography was performed demonstrating no main pulmonary artery emboli, but it did demonstrate a right upper lobar nonocclusive pulmonary emboli. Catheter was removed over a wire. Over the second Darden wire, a 6 German ZAHEER guide was advanced over the wire with a TuAnatexisst device. Catheter was used to select the right interlobar pulmonary artery. Cineangiography was performed demonstrating no large pulmonary emboli in the right interlobar pulmonary arteries. There was some nonocclusive thrombus noted in part of the lower lobar pulmonary artery. This was small in size. The catheter was retracted and the right main pulmonary artery was selected and cineangiography was performed demonstrating a nonocclusive thrombus in the right upper lobar pulmonary artery branches. Overall, in comparison to the CT scan, the thrombus load had significantly decreased, and the patient was symptomatically doing better. Therefore no further intervention was performed. All wires, catheters, and sheaths were removed. Pressure was held until hemostasis was achieved. Pressure dressing applied. FINDINGS: Please see procedure note above IMPRESSION: 1. Successful removal of the EKOS thrombolytic catheters from the pulmonary arteries x 2 2. Successful selection of bilateral segmental pulmonary arteries with cineangiography
--- NOTE | 2017-02-03 11:37 | Event Note ---
Date: 02/03/17 Tolerated EKOS therapy without issue. Discontinued EKOS thrombolysis and sheath orders. Started heparin drip orders. Lay flat for 6 hrs. Can be transferred out of ICU from vascular perspective after 6 hrs. Afterwards, can be converted to oral anticoagulation from a vascular standpoint. Consider hematology consult for oral anticoagulation management.
--- NOTE | 2017-02-03 11:59 | Consultation ---
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 Past History Past Medical History: hypertension, stroke Past Surgical History: No surgical history, Other (reviewed) Social history: , lives with family, smoking Family history: diabetes, hypertension Medications and Allergies Allergies Allergy/AdvReac Type Severity Reaction Status Date / Time No Known Allergies Allergy Verified 02/02/17 07:29 Home Medications Medication Instructions Recorded Confirmed Last Taken Type Lisinopril [Zestril TAB] 40 mg PO DAILY 09/29/13 02/02/17 02/01/17 History Ascorbic Acid [Vitamin C] 500 mg PO QDAY 02/02/17 02/02/17 02/01/17 History Calcium Carbonate [Calcium] 600 mg PO DAILY 02/02/17 02/02/17 02/01/17 History Lactobacillus Acidophilus 1 each PO DAILY 02/02/17 02/02/17 02/01/17 History [Probiotic] Methylcellulose [Fiber] 500 mg PO DAILY 02/02/17 02/02/17 02/01/17 History Vitamin E (Dl,Tocopheryl Acet) 100 unit PO DAILY 02/02/17 02/02/17 02/01/17 History [Vitamin E] amLODIPine [Norvasc] 10 mg PO DAILY 02/02/17 02/02/17 02/01/17 History Active Meds: Active Medications Acetaminophen/Hydrocodone Bitart ([place] 5/325) 2 each PO Q6H PRN PRN Reason: Pain, Moderate (4-6) Last Admin: 02/02/17 21:49 Dose: 2 each Al Hydrox/Mg Hydrox/Simethicone (Alum-Mag Hydrox-Simeth [id number]/5ml) 30 ml PO Q4H PRN PRN Reason: Indigestion Albuterol (Proventil) 2.5 mg IH Q4HRT PRN PRN Reason: Shortness Of Breath Amlodipine Besylate (Norvasc) 10 mg PO DAILY [facility] Last Admin: 02/03/17 09:15 Dose: 10 mg Ascorbic Acid (Vitamin C) 500 mg PO QDAY [facility] Last Admin: 02/03/17 09:15 Dose: 500 mg Bisacodyl (Dulcolax) 10 mg IN QDAY PRN PRN Reason: constipation unrelieved by MOM Calcium Polycarbophil (Fiber Tab) 625 mg PO QDAY PORTIA Hydralazine HCl (Apresoline) 10 mg IV Q6H PRN PRN Reason: Systolic > 160 and [place].> 100 Last Admin: 02/03/17 07:25 Dose: 10 mg Hydromorphone HCl (Dilaudid) 0.25 mg IV Q3H PRN PRN Reason: Pain, Moderate (4-6) Last Admin: 02/03/17 07:46 Dose: 0.25 mg Sodium Chloride (Nacl 0.9% 1000 Ml) 1,000 mls @ 100 mls/hr IV DIRECT PORTIA Last Admin: 02/02/17 15:30 Dose: 100 mls/hr Sodium Chloride (Nacl 0.9% 1000 Ml) 1,000 mls @ 30 mls/hr IV DIRECT PORTIA Last Admin: 02/02/17 18:14 Dose: 30 mls/hr Heparin Sodium/Sodium Chloride (Heparin/ 0.45% Nacl-25,000 Unit/500 Ml) 25,000 units in 500 mls @ 30 mls/hr IV TITR PORTIA; 1,500 UNITS/HR PRN Reason: Protocol Lactobacillus Acidophilus (Lactinex) 1 each PO DAILY [facility] Last Admin: 02/03/17 09:15 Dose: 1 each Lisinopril (Zestril) 40 mg PO DAILY [facility] Last Admin: 02/03/17 09:15 Dose: 40 mg Magnesium Hydroxide (Milk Of Magnesia) 30 ml PO Q4H PRN PRN Reason: Constipation Ondansetron HCl (Zofran) 4 mg IV Q8H PRN PRN Reason: Nausea And Vomiting Pneumococcal Polyvalent Vaccine (Pneumovax 23) 0.5 ml IM .ONCE ONE Stop: 02/03/17 12:01 Review of Systems All systems: negative Physical Examination Vital signs: Vital Signs Temp Pulse Resp BP Pulse Ox 97.5 F L 94 H 22 90/63 92 02/02/17 07:31 02/02/17 07:31 02/02/17 07:31 02/02/17 07:31 02/02/17 07:31 Results - Laboratory Findings CBC and BMP: 02/03/17 07:40 02/03/17 02:57 PT/INR, D-dimer PT 14.5 Sec. (12.2-14.9) 02/02/17 15:12 INR 1.14 (0.87-1.13) H 02/02/17 15:12 D-Dimer 3273.92 ng/mlDDU (0-234) H 02/02/17 07:44 Abnormal lab findings: Abnormal Labs 02/02/17 02/02/17 02/02/17 07:39 07:44 07:44 RBC 5.17 H Hgb Hct RDW Plt Count Seg Neutrophils % INR APTT D-Dimer 3273.92 H Heparin Anti-Xa Level Carbon Dioxide 21 L Glucose 156 H POC Glucose Troponin T HDL Cholesterol 02/02/17 02/02/17 02/02/17 07:50 10:42 15:12 RBC Hgb Hct RDW Plt Count Seg Neutrophils % INR APTT D-Dimer Heparin Anti-Xa Level Carbon Dioxide Glucose POC Glucose 157 H Troponin T 0.035 H D 0.139 H* D HDL Cholesterol 33 L 02/02/17 02/02/17 02/02/17 15:12 15:12 15:12 RBC 5.32 H Hgb 15.4 H Hct 46.7 H RDW 15.4 H Plt Count Seg Neutrophils % 78.5 H INR 1.14 H APTT 215.0 H* D-Dimer Heparin Anti-Xa Level Carbon Dioxide Glucose 119 H POC Glucose Troponin T HDL Cholesterol 02/02/17 02/02/17 02/03/17 19:28 19:28 02:57 RBC 5.18 H Hgb Hct 46.4 H RDW Plt Count Seg Neutrophils % INR APTT D-Dimer Heparin Anti-Xa Level 1.97 H 0.79 H Carbon Dioxide Glucose POC Glucose Troponin T HDL Cholesterol 02/03/17 02/03/17 02:57 07:40 RBC 5.24 H Hgb Hct 46.3 H RDW Plt Count 137 L Seg Neutrophils % INR APTT D-Dimer Heparin Anti-Xa Level Carbon Dioxide Glucose 169 H POC Glucose Troponin T HDL Cholesterol Assessment and Plan 56 y/o male with B/L PE status post EKOS 1. Continue IV anticoagluation 2. Follow up vascular recs, most likely will transfer out of unit after catheters are out and observation time is over 3. Agree with Heme consult for work up of VTE 4. will continue to follow CCT 31 minutes
[2017-02-03] MEDS: HEPARIN/ 0.45% NACL-25,000 UNIT/500 ML 25,000 UNIT/500 ML BAG ONE (12:00)
[2017-02-03] MEDS: HEPARIN/ 0.45% NACL-25,000 UNIT/500 ML 25,000 UNITS/500 ML BAG IV SCH (12:00)
[2017-02-03] MEDS ORDERED: PNEUMOVAX 23 IM ONE (12:00)
[2017-02-03 13:24] LABS: Hematocrit 47.7 % (35.5-45.6); Hemoglobin 15.7 gm/dl (11.8-15.2)
[2017-02-03 14:45] LABS: INR TNR (0.87-1.13)
[2017-02-03 14:48] LABS: Partial Thromboplastin Time TNR Sec. (24.2-36.6)
[2017-02-03 16:10] LABS: INR 0.92 (0.87-1.13)
[2017-02-03 16:30] LABS: Partial Thromboplastin Time 60.2 Sec. (24.2-36.6)
[2017-02-03] MEDS: FIBER TAB PO SCH (18:45)
[2017-02-03] MEDS: NORCO 5/325 PO PRN (20:53)
[2017-02-03] MEDS ORDERED: HEPARIN IV ONE (22:18)
[2017-02-03] MEDS ORDERED: HEPARIN 10,000 UNITS/10 ML IV ONE (22:25)
[2017-02-03] MEDS: ZYLOPRIM PO SCH (23:36)
[2017-02-04] MEDS: NACL 0.9% 1000 ML 1,000 ML IV SCH (03:07)
[2017-02-04 04:50] LABS: Basophils % (Auto) 0.6 % (0.0-1.8); Eosinophils % (Auto) 0.6 % (0.0-4.3); Hematocrit 45.3 % (35.5-45.6); Hemoglobin 14.9 gm/dl (11.8-15.2); Mean Corpuscular HGB Conc 33 % (32-34); Mean Corpuscular Hemoglobin 29 pg (28-32); Mean Corpuscular Volume 87 fl (84-94); Platelet Count 147 K/mm3 (140-440); Red Blood Count 5.22 M/mm3 (3.65-5.03); White Blood Count 9.2 K/mm3 (4.5-11.0)
[2017-02-04 05:09] LABS: Anion Gap 17 mmol/L; Blood Urea Nitrogen 12 mg/dL (9-20); Calcium 8.9 mg/dL (8.4-10.2); Carbon Dioxide 24 mmol/L (22-30); Chloride 99.4 mmol/L (98-107); Glucose 125 mg/dL (75-100); Potassium 3.6 mmol/L (3.6-5.0); Sodium 137 mmol/L (137-145)
[2017-02-04] MEDS: HEPARIN/ 0.45% NACL-25,000 UNIT/500 ML 25,000 UNITS/500 ML BAG IV SCH (05:37)
--- NOTE | 2017-02-04 08:29 | Progress Note ---
Assessment and Plan Assessment and plan: --Acute bilateral pulmonary embolism S/P EKOS, heparin drip and supportive care Vascular following, will consult hematology --Acute hypoxemic respiratory failure Secondary to bilateral PE Oxygen titrate O2 sats to more than 90%, BiPAP as needed pulmonary following --Hypertension Moderate control, continue current antihypertensives and when necessary medications --History of gout Continue allopurinol , pain medications --Ongoing tobacco use Smoking cessation counseling done patient strongly advised to quit tobacco use nicotine patch as needed --Obesity; Consultation and patient advised that in modification excised as tolerated and weight reduction Medically stable --DVT prophylaxis; patient is already on heparin drip History Interval history: Patient seen and evaluated in his home medications REVIEWED No new events reported by the nursing staff Patient complains of some pain in his joints Denies shortness of breath or chest pain Hospitalist Physical - Constitutional Vitals: Temp Pulse Resp BP Pulse Ox 99.3 F 0 L 18 136/87 96 02/04/17 07:22 02/04/17 07:22 02/04/17 07:22 02/04/17 07:22 02/04/17 07:22 General appearance: Present: no acute distress, well-nourished, obese - EENT Eyes: Present: PERRL, EOM intact - Neck Neck: Present: supple, normal ROM - Respiratory Respiratory effort: normal Respiratory: bilateral: diminished, negative: rales, rhonchi, wheezing - Cardiovascular Rhythm: regular Heart Sounds: Present: S1 & S2 - Extremities Extremities: no ischemia, pulses intact, pulses symmetrical - Abdominal General gastrointestinal: soft, non-tender, non-distended, normal bowel sounds - Integumentary Integumentary: Present: clear, warm - Psychiatric Psychiatric: appropriate mood/affect, cooperative - Neurologic Neurologic: CNII-XII intact, moves all extremities Results - Labs CBC & Chem 7: 02/04/17 04:09 02/04/17 04:09 Labs: Laboratory Last Values WBC 9.2 K/mm3 (4.5-11.0) 02/04/17 04:09 RBC 5.22 M/mm3 (3.65-5.03) H 02/04/17 04:09 Hgb 14.9 gm/dl (11.8-15.2) 02/04/17 04:09 Hct 45.3 % (35.5-45.6) 02/04/17 04:09 MCV 87 fl (84-94) 02/04/17 04:09 MCH 29 pg (28-32) 02/04/17 04:09 MCHC 33 % (32-34) 02/04/17 04:09 RDW 15.0 % (13.2-15.2) 02/04/17 04:09 Plt Count 147 K/mm3 (140-440) 02/04/17 04:09 Lymph % (Auto) 25.2 % (13.4-35.0) 02/04/17 04:09 [place] % (Auto) 6.7 % (0.0-7.3) 02/04/17 04:09 Eos % (Auto) 0.6 % (0.0-4.3) 02/04/17 04:09 Baso % (Auto) 0.6 % (0.0-1.8) 02/04/17 04:09 Lymph # 2.3 K/mm3 (1.2-5.4) 02/04/17 04:09 [place] # 0.6 K/mm3 (0.0-0.8) 02/04/17 04:09 Eos # 0.1 K/mm3 (0.0-0.4) 02/04/17 04:09 Baso # 0.1 K/mm3 (0.0-0.1) 02/04/17 04:09 Seg Neutrophils % 66.9 % (40.0-70.0) 02/04/17 04:09 Seg Neutrophils # 6.2 K/mm3 (1.8-7.7) 02/04/17 04:09 PT 12.8 Sec. (12.2-14.9) 02/03/17 15:32 INR 0.92 (0.87-1.13) 02/03/17 15:32 APTT 60.2 Sec. (24.2-36.6) H* 02/03/17 15:32 Fibrinogen 396 mg/dl (211-480) 02/03/17 07:40 D-Dimer 3273.92 ng/mlDDU (0-234) H 02/02/17 07:44 Heparin Anti-Xa Level 0.43 U.I./ml (0.3-0.7) 02/04/17 04:09 Sodium 137 mmol/L (137-145) 02/04/17 04:09 Potassium 3.6 mmol/L (3.6-5.0) 02/04/17 04:09 Chloride 99.4 mmol/L (98-107) 02/04/17 04:09 Carbon Dioxide 24 mmol/L (22-30) 02/04/17 04:09 Anion Gap 17 mmol/L 02/04/17 04:09 BUN 12 mg/dL (9-20) 02/04/17 04:09 Creatinine 1.0 mg/dL (0.8-1.5) 02/04/17 04:09 Estimated GFR > 60 ml/min 02/04/17 04:09 BUN/Creatinine Ratio 12.00 % 02/04/17 04:09 Glucose 125 mg/dL (75-100) H 02/04/17 04:09 POC Glucose 157 (70-105) H 02/02/17 07:50 Calcium 8.9 mg/dL (8.4-10.2) 02/04/17 04:09 Troponin T 0.139 ng/mL (0.00-0.029) H* D 02/02/17 15:12 NT-Pro-B Natriuret Pep 36.37 pg/mL (0-900) 02/02/17 07:44 Triglycerides 115 mg/dL (2-149) 02/02/17 10:42 Cholesterol 182 mg/dL (50-199) 02/02/17 10:42 LDL Cholesterol Direct 126 mg/dL (50-130) 02/02/17 10:42 HDL Cholesterol 33 mg/dL (40-59) L 02/02/17 10:42 Cholesterol/HDL Ratio 5.51 % 02/02/17 10:42 Blood Type A POSITIVE 02/02/17 11:03 Antibody Screen TNR 02/02/17 11:03 LIGIA Antibody Screen Negative 02/02/17 11:03
[2017-02-04] MEDS: VITAMIN C PO SCH (09:52)
[2017-02-04] MEDS: ZYLOPRIM PO SCH (09:52)
[2017-02-04] MEDS: ZESTRIL PO SCH (09:52)
[2017-02-04] MEDS: LACTINEX PO SCH (09:52)
[2017-02-04] MEDS: NORVASC PO SCH (09:52)
[2017-02-04] MEDS: FIBER TAB PO SCH (09:53)
[2017-02-04] MEDS: PERCOCET 5/325 PO PRN ×2 (11:33→22:00)
[2017-02-04] MEDS ORDERED: PNEUMOVAX 23 IM ONE (12:00)
--- NOTE | 2017-02-04 14:47 | Progress Note ---
Assessment and Plan Pt s/p EKOS thrombolysis of PE. Hematology consulted. Agree with conversion to oral anticoagulation. Pt with RLE swelling. Will check venous duplex to document if the pt has a dvt. Pt will f/u in our office as outpt in ~2 weeks. - Patient Problems (1) Saddle embolism of pulmonary artery Current Visit: Yes Status: Acute Qualifiers: Chronicity: acute Acute cor pulmonale presence: without acute cor pulmonale Qualified Code(s): I26.92 - Saddle embolus of pulmonary artery without acute cor pulmonale (2) Swelling of right lower extremity Current Visit: Yes Status: Acute Subjective Date of service: 02/04/17 Interval history: Pt is awake and alert. His symptoms continues to improve. Objective - Constitutional Vitals: Vital Signs - 12hr 02/04/17 02/04/17 02/04/17 07:22 09:46 10:00 Temperature 99.3 F 99.2 F Pulse Rate 56 L Pulse Rate [ 0 L From Monitor] Pulse Rate [ 0 L Left Dorsalis Pedis] Pulse Rate [ 83 Left Radial] Pulse Rate [ 0 L Right Dorsalis Pedis] Pulse Rate [ 0 L 84 Right Radial] Respiratory 18 16 Rate Blood Pressure 136/87 [Left Radial Artery] Blood Pressure 137/94 [Right Arm] O2 Sat by Pulse 96 94 Oximetry 02/04/17 11:33 Temperature Pulse Rate Pulse Rate [ From Monitor] Pulse Rate [ Left Dorsalis Pedis] Pulse Rate [ Left Radial] Pulse Rate [ Right Dorsalis Pedis] Pulse Rate [ Right Radial] Respiratory 20 Rate Blood Pressure [Left Radial Artery] Blood Pressure [Right Arm] O2 Sat by Pulse Oximetry General appearance: Present: no acute distress - EENT Eyes: EOM intact ENT: hearing intact - Respiratory Respiratory effort: normal (unlabored at RA) Extremities: abnormal (right groin pressure dressing remove, no swelling or signs of psuedoaneurysm.) Extremity abnormal: edema (RLE with discomfort) - Neurologic Neurologic: no focal deficits - Psychiatric Psychiatric: appropriate mood/affect, intact judgment & insight, cooperative - Labs CBC & Chem 7: 02/04/17 04:09 02/04/17 04:09 Labs: Abnormal lab results 02/03/17 02/03/17 02/04/17 Range/Units 15:32 18:27 04:09 RBC (3.65-5.03) M/mm3 APTT 60.2 H* (24.2-36.6) Sec. Heparin Anti-Xa Level < 0.10 L (0.3-0.7) U.I./ml Glucose 125 H (75-100) mg/dL 02/04/17 Range/Units 04:09 RBC 5.22 H (3.65-5.03) M/mm3 APTT (24.2-36.6) Sec. Heparin Anti-Xa Level (0.3-0.7) U.I./ml Glucose (75-100) mg/dL
[2017-02-05] MEDS: HEPARIN/ 0.45% NACL-25,000 UNIT/500 ML 25,000 UNITS/500 ML BAG IV SCH ×2 (00:14→19:26)
[2017-02-05] MEDS: PERCOCET 5/325 PO PRN ×2 (05:56→19:29)
[2017-02-05] MEDS: NACL 0.9% 1000 ML 1,000 ML IV SCH (05:58)
[2017-02-05 07:16] LABS: Hematocrit 40.9 % (35.5-45.6); Hemoglobin 13.6 gm/dl (11.8-15.2)
[2017-02-05 07:28] LABS: Anion Gap 18 mmol/L; Blood Urea Nitrogen 14 mg/dL (9-20); Calcium 8.4 mg/dL (8.4-10.2); Carbon Dioxide 21 mmol/L (22-30); Glucose 164 mg/dL (75-100); Potassium 3.8 mmol/L (3.6-5.0); Sodium 137 mmol/L (137-145)
--- NOTE | 2017-02-05 09:38 | Progress Note ---
Assessment and Plan Assessment and plan: --Right lower extremity DVT Heparin drip, elevate the limb, supportive care --Acute bilateral pulmonary embolism S/P EKOS, heparin drip and supportive care Vascular following, hematology evaluation requested --Acute hypoxemic respiratory failure Secondary to bilateral PE, symptoms slightly improved Continue oxygen titrate O2 sats to more than 90% BiPAP as needed --Hypertension Moderate control, continue current antihypertensives and when necessary medications --History of gout Continue allopurinol , pain medications --Ongoing tobacco use Smoking cessation counseling done patient strongly advised to quit tobacco use nicotine patch as needed --Obesity; Consultation and patient advised that in modification excised as tolerated and weight reduction Medically stable --DVT prophylaxis; patient is already on heparin drip Follow hematology evaluation, possible switch to oral anticoagulants soon Plan of care discussed with the patient, his nurse and case management History Interval history: Patient seen and evaluated medical records reviewed No new events reported by the nursing staff, feels slightly better Complaints of right lower extremity pain, venous Doppler positive for DVT Patient denies chest pain or shortness of breath Hospitalist Physical - Constitutional Vitals: Temp Pulse Resp BP Pulse Ox 98.6 F 95 H 24 157/103 97 02/05/17 08:37 02/05/17 08:37 02/05/17 08:37 02/05/17 08:37 02/05/17 08:37 General appearance: Present: no acute distress, well-nourished, obese - EENT Eyes: Present: PERRL, EOM intact - Neck Neck: Present: supple, normal ROM - Respiratory Respiratory effort: normal Respiratory: bilateral: diminished, rhonchi, negative: rales, wheezing - Cardiovascular Rhythm: regular Heart Sounds: Present: S1 & S2 - Extremities Extremities: abnormal (right lower extremity swelling and tenderness/DVT) Extremity abnormal: edema (trace edema), tenderness - Abdominal General gastrointestinal: soft, non-tender, non-distended, normal bowel sounds - Integumentary Integumentary: Present: clear, warm - Psychiatric Psychiatric: appropriate mood/affect, cooperative - Neurologic Neurologic: CNII-XII intact, moves all extremities Results - Labs CBC & Chem 7: 02/05/17 06:49 02/05/17 06:49 Labs: Laboratory Last Values WBC 9.2 K/mm3 (4.5-11.0) 02/04/17 04:09 RBC 5.22 M/mm3 (3.65-5.03) H 02/04/17 04:09 Hgb 13.6 gm/dl (11.8-15.2) 02/05/17 06:49 Hct 40.9 % (35.5-45.6) 02/05/17 06:49 MCV 87 fl (84-94) 02/04/17 04:09 MCH 29 pg (28-32) 02/04/17 04:09 MCHC 33 % (32-34) 02/04/17 04:09 RDW 15.0 % (13.2-15.2) 02/04/17 04:09 Plt Count 139 K/mm3 (140-440) L 02/05/17 06:49 Lymph % (Auto) 25.2 % (13.4-35.0) 02/04/17 04:09 [place] % (Auto) 6.7 % (0.0-7.3) 02/04/17 04:09 Eos % (Auto) 0.6 % (0.0-4.3) 02/04/17 04:09 Baso % (Auto) 0.6 % (0.0-1.8) 02/04/17 04:09 Lymph # 2.3 K/mm3 (1.2-5.4) 02/04/17 04:09 [place] # 0.6 K/mm3 (0.0-0.8) 02/04/17 04:09 Eos # 0.1 K/mm3 (0.0-0.4) 02/04/17 04:09 Baso # 0.1 K/mm3 (0.0-0.1) 02/04/17 04:09 Seg Neutrophils % 66.9 % (40.0-70.0) 02/04/17 04:09 Seg Neutrophils # 6.2 K/mm3 (1.8-7.7) 02/04/17 04:09 PT 12.8 Sec. (12.2-14.9) 02/03/17 15:32 INR 0.92 (0.87-1.13) 02/03/17 15:32 APTT 60.2 Sec. (24.2-36.6) H* 02/03/17 15:32 Fibrinogen 396 mg/dl (211-480) 02/03/17 07:40 D-Dimer 3273.92 ng/mlDDU (0-234) H 02/02/17 07:44 Heparin Anti-Xa Level 0.37 U.I./ml (0.3-0.7) 02/05/17 06:49 Sodium 137 mmol/L (137-145) 02/05/17 06:49 Potassium 3.8 mmol/L (3.6-5.0) 02/05/17 06:49 Chloride 102.0 mmol/L (98-107) 02/05/17 06:49 Carbon Dioxide 21 mmol/L (22-30) L 02/05/17 06:49 Anion Gap 18 mmol/L 02/05/17 06:49 BUN 14 mg/dL (9-20) 02/05/17 06:49 Creatinine 1.0 mg/dL (0.8-1.5) 02/05/17 06:49 Estimated GFR > 60 ml/min 02/05/17 06:49 BUN/Creatinine Ratio 14.00 % 02/05/17 06:49 Glucose 164 mg/dL (75-100) H 02/05/17 06:49 POC Glucose 157 (70-105) H 02/02/17 07:50 Calcium 8.4 mg/dL (8.4-10.2) 02/05/17 06:49 Troponin T 0.139 ng/mL (0.00-0.029) H* D 02/02/17 15:12 NT-Pro-B Natriuret Pep 36.37 pg/mL (0-900) 02/02/17 07:44 Triglycerides 115 mg/dL (2-149) 02/02/17 10:42 Cholesterol 182 mg/dL (50-199) 02/02/17 10:42 LDL Cholesterol Direct 126 mg/dL (50-130) 02/02/17 10:42 HDL Cholesterol 33 mg/dL (40-59) L 02/02/17 10:42 Cholesterol/HDL Ratio 5.51 % 02/02/17 10:42 Blood Type A POSITIVE 02/02/17 11:03 Antibody Screen TNR 02/02/17 11:03 LIGIA Antibody Screen Negative 02/02/17 11:03
[2017-02-05] MEDS: NORVASC PO SCH (10:39)
[2017-02-05] MEDS: FIBER TAB PO SCH (10:39)
[2017-02-05] MEDS: LACTINEX PO SCH (10:39)
[2017-02-05] MEDS: ZESTRIL PO SCH (10:40)
[2017-02-05] MEDS: VITAMIN C PO SCH (10:40)
[2017-02-05] MEDS: ZYLOPRIM PO SCH (10:41)
[2017-02-05] MEDS: NORCO 5/325 PO PRN (23:07)
[2017-02-06] MEDS: PERCOCET 5/325 PO PRN ×2 (08:02→20:05)
[2017-02-06] MEDS: FIBER TAB PO SCH (10:04)
[2017-02-06] MEDS: ZESTRIL PO SCH (10:04)
[2017-02-06] MEDS: ZYLOPRIM PO SCH (10:04)
[2017-02-06] MEDS: VITAMIN C PO SCH (10:04)
[2017-02-06] MEDS: LACTINEX PO SCH (10:04)
--- NOTE | 2017-02-06 10:13 | Hem/Onc Consultation ---
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 Patient is s/p EKOS but and is currently on a Heparin drip. He still reports significant DING when he ambulates. Recommend: 1. Repeat CT PE protocol to eval clot burden 2. Repeat Echo to evaluate right sided pressures 3. I recommend Xarelto to start tomorrow. I will discuss with Dr Redd about providing patient assistance because patient does not have insurance. In general, we are usually able to provide a coupon that will supply the first month free and then we can help him apply for additional assistance. 4. f.u with Dr Redd to manage anticoagulation, and to perform hypercoag workup , although patient does not provide a family hx of thrombophilia and does not report any prior venous clotting event. Past History Past Medical History: hypertension, stroke Past Surgical History: No surgical history, Other (reviewed) Social history: , lives with family, smoking Family history: diabetes, hypertension Medications and Allergies Allergies Allergy/AdvReac Type Severity Reaction Status Date / Time No Known Allergies Allergy Verified 02/02/17 07:29 Home Medications Medication Instructions Recorded Confirmed Last Taken Type Lisinopril [Zestril TAB] 40 mg PO DAILY 09/29/13 02/02/17 02/01/17 History Ascorbic Acid [Vitamin C] 500 mg PO QDAY 02/02/17 02/02/17 02/01/17 History Calcium Carbonate [Calcium] 600 mg PO DAILY 02/02/17 02/02/17 02/01/17 History Lactobacillus Acidophilus 1 each PO DAILY 02/02/17 02/02/17 02/01/17 History [Probiotic] Methylcellulose [Fiber] 500 mg PO DAILY 02/02/17 02/02/17 02/01/17 History Vitamin E (Dl,Tocopheryl Acet) 100 unit PO DAILY 02/02/17 02/02/17 02/01/17 History [Vitamin E] amLODIPine [Norvasc] 10 mg PO DAILY 02/02/17 02/02/17 02/01/17 History Active Meds: Active Medications Acetaminophen/Hydrocodone Bitart ([place] 5/325) 2 each PO Q6H PRN PRN Reason: Pain, Moderate (4-6) Last Admin: 02/05/17 23:07 Dose: 2 each Al Hydrox/Mg Hydrox/Simethicone (Alum-Mag Hydrox-Simeth [id number]/5ml) 30 ml PO Q4H PRN PRN Reason: Indigestion Albuterol (Proventil) 2.5 mg IH Q4HRT PRN PRN Reason: Shortness Of Breath Allopurinol (Zyloprim) 100 mg PO QDAY [facility] Last Admin: 02/06/17 10:04 Dose: 100 mg Amlodipine Besylate (Norvasc) 10 mg PO DAILY [facility] Last Admin: 02/05/17 10:39 Dose: 10 mg Ascorbic Acid (Vitamin C) 500 mg PO QDAY [facility] Last Admin: 02/06/17 10:04 Dose: 500 mg Bisacodyl (Dulcolax) 10 mg SC QDAY PRN PRN Reason: constipation unrelieved by MOM Calcium Polycarbophil (Fiber Tab) 625 mg PO QDAY [facility] Last Admin: 02/06/17 10:04 Dose: 625 mg Hydralazine HCl (Apresoline) 10 mg IV Q6H PRN PRN Reason: Systolic > 160 and [place].> 100 Last Admin: 02/03/17 15:33 Dose: 10 mg Hydromorphone HCl (Dilaudid) 0.25 mg IV Q3H PRN PRN Reason: Pain, Moderate (4-6) Last Admin: 02/03/17 23:36 Dose: 0.25 mg Sodium Chloride (Nacl 0.9% 1000 Ml) 1,000 mls @ 100 mls/hr IV DIRECT PORTIA Last Admin: 02/02/17 15:30 Dose: 100 mls/hr Sodium Chloride (Nacl 0.9% 1000 Ml) 1,000 mls @ 30 mls/hr IV DIRECT PORTIA Last Admin: 02/05/17 05:58 Dose: 30 mls/hr Heparin Sodium/Sodium Chloride (Heparin/ 0.45% Nacl-25,000 Unit/500 Ml) 25,000 units in 500 mls @ 30 mls/hr IV TITR PORTIA; 1,500 UNITS/HR PRN Reason: Protocol Last Titration: 02/06/17 06:55 Dose: 1,400 units/hr, 28 mls/hr Lactobacillus Acidophilus (Lactinex) 1 each PO DAILY [facility] Last Admin: 02/06/17 10:04 Dose: 1 each Lisinopril (Zestril) 40 mg PO DAILY [facility] Last Admin: 02/06/17 10:04 Dose: 40 mg Magnesium Hydroxide (Milk Of Magnesia) 30 ml PO Q4H PRN PRN Reason: Constipation Ondansetron HCl (Zofran) 4 mg IV Q8H PRN PRN Reason: Nausea And Vomiting Oxycodone/Acetaminophen (Percocet 5/325) 1 tab PO Q6H PRN PRN Reason: Pain, Moderate (4-6) Last Admin: 02/06/17 08:02 Dose: 1 tab Review of Systems Cardiovascular: chest pain, dyspnea on exertion Musculoskeletal: other (swelling and discomfort of right leg is reported. ) Exam - Constitutional Vitals: Last Vital Signs Temp 99.1 F 02/06/17 05:47 Pulse 100 H 02/06/17 10:04 Resp 18 02/06/17 05:47 BP 122/77 02/06/17 10:04 Pulse Ox 97 02/06/17 05:47 Pain Intensity (0-10): denies any pain General appearance: no acute distress Performance status: 1-light work, ambulatory - EENT Eyes: PERRL, EOM intact ENT: hearing intact Lymph node exam: negative cervical, negative supraclavicular - Neck Neck: supple, normal ROM - Respiratory Respiratory: bilateral: CTA - Cardiovascular Rhythm: regular Extremities: abnormal (right thigh is swollen ) Results - Labs lab Results: Laboratory Results - last 24 hr 02/06/17 06:09 Heparin Anti-Xa Level 0.26 L - Imaging and cardiology CT scan - chest: report reviewed Assessment and Plan Patient with large Clot burden, s/p EKOS, still symptomatic Plan is to continue Heparin drip until 02/07 and then start Xarelto - I will ask Dr Redd to help with patient assistance. Repeat CT scan and echo because patient still has DING - Patient Problems (1) Bilateral pulmonary embolism Current Visit: Yes Status: Acute
[2017-02-06] MEDS ORDERED: NACL ONE (10:45)
--- NOTE | 2017-02-06 11:59 | Progress Note ---
Assessment and Plan Assessment and plan: --Acute bilateral pulmonary embolism S/P EKOS, heparin drip and supportive care Vascular following, hematology requested follow-up CT angiogram of the chest --Right lower extremity DVT Heparin drip, elevate the limb, supportive care --Acute hypoxemic respiratory failure Secondary to bilateral PE, symptoms slightly improved Continue oxygen titrate O2 sats to more than 90% BiPAP as needed --Hypertension Moderate control, continue current antihypertensives and when necessary medications --History of gout Continue allopurinol , pain medications --Ongoing tobacco use, nicotine patch as needed Smoking cessation counseling done patient strongly advised to quit tobacco use --Obesity; Consultation and patient advised that in modification excised as tolerated and weight reduction Medically stable --DVT prophylaxis; on heparin drip hematology planning switch to oral anticoagulants after checking f/u CTA Plan of care discussed with the patient, his nurse and case management History Interval history: Patient seen and evaluated medical records reviewed patient feels better no new complaints, awake oriented 3 not in acute distress Vital signs stable, is on heparin drip Hospitalist Physical - Constitutional Vitals: Temp Pulse Resp BP Pulse Ox 98.6 F 100 H 12 122/77 96 02/06/17 11:16 02/06/17 11:16 02/06/17 11:16 02/06/17 11:16 02/06/17 11:16 General appearance: Present: no acute distress, well-nourished, obese - EENT Eyes: Present: PERRL, EOM intact - Neck Neck: Present: supple, normal ROM - Respiratory Respiratory effort: normal Respiratory: bilateral: diminished, negative: rales, rhonchi, wheezing - Cardiovascular Rhythm: regular Heart Sounds: Present: S1 & S2 - Extremities Extremities: no ischemia - Abdominal General gastrointestinal: soft, non-tender - Integumentary Integumentary: Present: clear, warm - Psychiatric Psychiatric: appropriate mood/affect, cooperative - Neurologic Neurologic: CNII-XII intact, moves all extremities Results - Labs CBC & Chem 7: 02/05/17 06:49 02/05/17 06:49 Labs: Laboratory Last Values WBC 9.2 K/mm3 (4.5-11.0) 02/04/17 04:09 RBC 5.22 M/mm3 (3.65-5.03) H 02/04/17 04:09 Hgb 13.6 gm/dl (11.8-15.2) 02/05/17 06:49 Hct 40.9 % (35.5-45.6) 02/05/17 06:49 MCV 87 fl (84-94) 02/04/17 04:09 MCH 29 pg (28-32) 02/04/17 04:09 MCHC 33 % (32-34) 02/04/17 04:09 RDW 15.0 % (13.2-15.2) 02/04/17 04:09 Plt Count 139 K/mm3 (140-440) L 02/05/17 06:49 Lymph % (Auto) 25.2 % (13.4-35.0) 02/04/17 04:09 [place] % (Auto) 6.7 % (0.0-7.3) 02/04/17 04:09 Eos % (Auto) 0.6 % (0.0-4.3) 02/04/17 04:09 Baso % (Auto) 0.6 % (0.0-1.8) 02/04/17 04:09 Lymph # 2.3 K/mm3 (1.2-5.4) 02/04/17 04:09 [place] # 0.6 K/mm3 (0.0-0.8) 02/04/17 04:09 Eos # 0.1 K/mm3 (0.0-0.4) 02/04/17 04:09 Baso # 0.1 K/mm3 (0.0-0.1) 02/04/17 04:09 Seg Neutrophils % 66.9 % (40.0-70.0) 02/04/17 04:09 Seg Neutrophils # 6.2 K/mm3 (1.8-7.7) 02/04/17 04:09 PT 12.8 Sec. (12.2-14.9) 02/03/17 15:32 INR 0.92 (0.87-1.13) 02/03/17 15:32 APTT 60.2 Sec. (24.2-36.6) H* 02/03/17 15:32 Fibrinogen 396 mg/dl (211-480) 02/03/17 07:40 D-Dimer 3273.92 ng/mlDDU (0-234) H 02/02/17 07:44 Heparin Anti-Xa Level 0.26 U.I./ml (0.3-0.7) L 02/06/17 06:09 Sodium 137 mmol/L (137-145) 02/05/17 06:49 Potassium 3.8 mmol/L (3.6-5.0) 02/05/17 06:49 Chloride 102.0 mmol/L (98-107) 02/05/17 06:49 Carbon Dioxide 21 mmol/L (22-30) L 02/05/17 06:49 Anion Gap 18 mmol/L 02/05/17 06:49 BUN 14 mg/dL (9-20) 02/05/17 06:49 Creatinine 1.0 mg/dL (0.8-1.5) 02/05/17 06:49 Estimated GFR > 60 ml/min 02/05/17 06:49 BUN/Creatinine Ratio 14.00 % 02/05/17 06:49 Glucose 164 mg/dL (75-100) H 02/05/17 06:49 POC Glucose 157 (70-105) H 02/02/17 07:50 Calcium 8.4 mg/dL (8.4-10.2) 02/05/17 06:49 Troponin T 0.139 ng/mL (0.00-0.029) H* D 02/02/17 15:12 NT-Pro-B Natriuret Pep 36.37 pg/mL (0-900) 02/02/17 07:44 Triglycerides 115 mg/dL (2-149) 02/02/17 10:42 Cholesterol 182 mg/dL (50-199) 02/02/17 10:42 LDL Cholesterol Direct 126 mg/dL (50-130) 02/02/17 10:42 HDL Cholesterol 33 mg/dL (40-59) L 02/02/17 10:42 Cholesterol/HDL Ratio 5.51 % 02/02/17 10:42 Blood Type A POSITIVE 02/02/17 11:03 Antibody Screen TNR 02/02/17 11:03 LIGIA Antibody Screen Negative 02/02/17 11:03
--- NOTE | 2017-02-06 12:44 | Vascular Lab Report ---
LOWER EXTREMITY VENOUS DUPLEX: REASON FOR EXAM: Swelling of the lower extremities. COMMENTS ON THE RIGHT: Deep venous thrombosis is noted in the posterior tibial, tibioperoneal trunk and distal popliteal veins.. The remaining veins visualized are freely compressible without evidence of internal echogenicity. Spontaneous and phasic flow is present proximally. COMMENTS ON THE LEFT: All veins visualized are freely compressible without evidence of internal echogenicity. Flow is spontaneous and phasic throughout. IMPRESSION: Deep venous thrombosis in the right lower extremity
--- NOTE | 2017-02-06 13:41 | Cat Scan Report ---
CT CHEST WITH CONTRAST: 02/06/17 10:22:00 CLINICAL: Followup of known pulmonary emboli. COMPARISON: 02/02/17 TECHNIQUE: PE protocol with volumetric acquisition and 1.25 mm scan reconstructions after the uneventful intravenous injection of 100 cc Omnipaque 350. Consent was obtained prior to the administration of contrast. FINDINGS: Less than optimum opacification of the pulmonary arteries are due to poor timing of the contrast bolus. The aorta is more opaque than the pulmonary artery. Despite the left and mild opacification of the arteries, thrombus is still identified in the right and left main pulmonary arteries with extension into bilateral lower lobe and upper lobe arteries. My guess is that there is slightly reduced burden of thrombus. The lungs are clear. No air space disease. No pleural effusion. The heart and aorta are normal. IMPRESSION: Extensive central pulmonary emboli with extension into bilateral peripheral upper lobe, right middle lobe and bilateral lower lobe arteries. A slightly decreased burden of thrombus compared to the prior exam.
[2017-02-06] MEDS: NACL 0.9% 1000 ML 1,000 ML IV SCH (17:41)
[2017-02-06] MEDS: NORVASC PO SCH (20:03)
[2017-02-06] MEDS ORDERED: HEPARIN 10,000 UNITS/10 ML IV ONE (22:49)
[2017-02-07] MEDS: DILAUDID IV PRN ×2 (01:02→13:21)
[2017-02-07 07:05] LABS: Hematocrit 38.6 % (35.5-45.6)
--- NOTE | 2017-02-07 09:05 | Hem/Onc Progress Note ---
Assessment and Plan Continue heparin. Would need assistance in getting anticoagulation at home Xarelto or eliquis. Once home, we will be getting hypercoagulable workup as an outpatient. Subjective Date of service: 02/07/17 Interval history: Patient undergoing echocardiogram. He states he still has right leg pain. Continues heparin. Denies any active bleeding. Shortness of breath is stable. Repeat CT shows some improvement in the pulmonary emboli Objective - Constitutional Vitals: Last Vital Signs Temp 98.2 F 02/07/17 08:39 Pulse 86 02/07/17 08:39 Resp 18 02/07/17 08:39 BP 132/84 02/07/17 08:39 Pulse Ox 97 02/07/17 08:39 General appearance: mild distress - Neck Neck: supple - Respiratory Respiratory: bilateral: diminished - Cardiovascular Rhythm: regular Extremities: abnormal (right leg swelling) - Gastrointestinal General gastrointestinal: Present: soft - Labs Lab Results: Laboratory Results - last 24 hr 02/06/17 02/06/17 02/07/17 12:54 21:04 06:41 Hgb 13.0 Hct 38.6 Plt Count 175 Heparin Anti-Xa Level 0.26 L < 0.10 L 02/07/17 06:41 Hgb Hct Plt Count Heparin Anti-Xa Level 0.66
[2017-02-07] MEDS: HEPARIN/ 0.45% NACL-25,000 UNIT/500 ML 25,000 UNITS/500 ML BAG IV SCH (10:22)
[2017-02-07] MEDS: NORVASC PO SCH (10:27)
[2017-02-07] MEDS: ZYLOPRIM PO SCH (10:27)
[2017-02-07] MEDS: VITAMIN C PO SCH (10:28)
[2017-02-07] MEDS: LACTINEX PO SCH (10:28)
[2017-02-07] MEDS: FIBER TAB PO SCH (10:34)
[2017-02-07] MEDS: ZESTRIL PO SCH (10:34)
[2017-02-07 12:35] VITALS: BP 155/108
[2017-02-07] MEDS: APRESOLINE IV PRN (13:22)
--- NOTE | 2017-02-07 13:59 | Discharge Summary ---
Providers - Providers Date of Admission: 02/02/17 12:29 Date of discharge: 02/07/17 Attending physician: MACK HEAD 02/04/17 12:04 Consult to Physician [CONS] Routine Consulting Provider: MEMO FAJARDO Reason For Exam: [place] PE s/p EKOS Place consult to:: kenan service Notified:: y Phone number called:: [phone] Was contact made?: Yes If yes, spoke with:: jett Time called:: 08:56 Primary care physician: [facility] RN Hospitalization Reason for admission: chest pain/acute respiratory failure/acute PE Condition: Fair Pertinent studies: Chest x-ray CT angiogram of the chest Lower extremity venous Doppler Echocardiogram EKOS Follow-up CT angiogram of the chest Hospital course: 56-year-old male patient with multiple medical problems as mentioned above was admitted through emergency room with the severe chest pain, and respiratory distress Patient was initially evaluated placed on noninvasive positive pressure ventilation, workup is consistent with bilateral PE, Cornelius has evaluated the patient and patient underwent EKOS procedure, heparin drip and admitted to ICU, intubated by pulmonary critical and hematology oncologist, Cornelius has followed the patient throughout the hospital stay Patient's blood pressures sugars closely monitored medications were optimized Received BiPAP as needed Patient had lower extremity venous Dopplers which was positive for DVT on the right lower extremity Patient was evaluated by hematology oncologist, repeat CT angiogram was done which revealed extensive central pulmonary emboli with extension into bilateral peripheral upper lobe right middle lobe bilateral lower lobe heart is slightly decreased burden of thrombus compared to the prior exam heparin drip was discontinued and started on Eliquis per protocol Disposition counseling done patient strongly advised to quit tobacco use, verbalized understanding Date of discharge patient was comfortable, denies any chest pain or shortness of breath, vital signs are stable, [id number] evaluation physical examination done by id prior to discharge, did not show any changes, advised to follow with vascular, hematology oncologist, primary care physician upon discharge The time of discharge patient was hemodynamically and clinically stable Discharge diagnosis; Acute bilateral PE S/P EKOS Right lower extremity DVT Acute hypoxemic respiratory failure requiring BiPAP Hypertension History of gout Ongoing tobacco use Obesity Disposition: TO HOME OR SELFCARE Time spent for discharge: 35 min Core Measure Documentation - Palliative Care Palliative Care/ Comfort Measures: Not Applicable - Core Measures Any of the following diagnoses?: DVT/PE - VTE Discharge Requirements Deep Vein Thrombosis/Pulmonary Embolism Present on Admission: Yes Has pt received <5 days of overlap therapy or INR<2.0: No (on Eliquis) Anticoagulant overlap therapy prescribed at discharge: No Contraindication No Overlap Therapy order at DC: Not Indicated (pt on Eliquis) Exam - Constitutional Vitals: Temp Pulse Resp BP Pulse Ox 98.8 F 97 H 18 155/108 100 02/07/17 12:34 02/07/17 13:22 02/07/17 12:34 02/07/17 13:22 02/07/17 12:34 General appearance: Present: no acute distress, well-nourished - EENT Eyes: Present: PERRL, EOM intact - Neck Neck: Present: supple, normal ROM - Respiratory Respiratory effort: normal Respiratory: bilateral: diminished, negative: rales, rhonchi, wheezing - Cardiovascular Rhythm: regular Heart Sounds: Present: S1 & S2 - Extremities Extremities: no ischemia, No edema - Abdominal General gastrointestinal: Present: soft, non-tender, non-distended, normal bowel sounds - Integumentary Integumentary: Present: clear, warm - Musculoskeletal Musculoskeletal: strength equal bilaterally, generalized weakness - Psychiatric Psychiatric: appropriate mood/affect, cooperative - Neurologic Neurologic: CNII-XII intact, moves all extremities Plan Activity: advance as tolerated Diet: low salt Follow up with: PRIMARY CARE, [Primary Care Provider] - 3-5 Days MEMO FAJARDO MD [Staff Physician] - 7 Days REJI WILDER MD [Staff Physician] - 7 Days Prescriptions: amLODIPine [Norvasc] 10 mg PO DAILY #30 tablet Apixaban [Eliquis] 2 tab PO BID #28 tablet Apixaban [Eliquis] 5 mg PO BID #42 tablet HYDROcodone/APAP 5-325 [[place] 5-325 mg TAB] 1 each PO Q6H PRN #20 tablet PRN Reason: Pain, Moderate (4-6) Lisinopril [Zestril TAB] 40 mg PO DAILY #30 tablet
[2017-02-07] MEDS ORDERED: ELIQUIS PO SCH (22:00)
== END 2017-02-07 16:33 | disposition home or self-care (01) | DRG 175 ==
LOC: OPU 07:17 → ED 07:17 → CC1 12:29 → EDSTATUS 12:42 → CC1 16:53 → 4A 02-03 23:27
PROVIDERS: ADMIT Internal Medicine; ATTEND Internal Medicine
PROC: 02HR33Z Insertion of Infusion Device into Left Pulmonary Artery, Percutaneous Approach (ICD-10-PCS; principal; 2017-02-02)
PROC: 02HQ33Z Insertion of Infusion Device into Right Pulmonary Artery, Percutaneous Approach (ICD-10-PCS; 2017-02-02)
PROC: B31T1ZZ Fluoroscopy of Left Pulmonary Artery using Low Osmolar Contrast (ICD-10-PCS; 2017-02-02)
PROC: B31S1ZZ Fluoroscopy of Right Pulmonary Artery using Low Osmolar Contrast (ICD-10-PCS; 2017-02-02)
PROC: 3E05317 Introduction of Other Thrombolytic into Peripheral Artery, Percutaneous Approach (ICD-10-PCS; 2017-02-02)
PROC: 02PYX3Z Removal of Infusion Device from Great Vessel, External Approach (ICD-10-PCS; 2017-02-03)
PROC: 02PYX3Z Removal of Infusion Device from Great Vessel, External Approach (ICD-10-PCS; 2017-02-03)
DX: I26.99 Other pulmonary embolism without acute cor pulmonale (principal); J96.01 Acute respiratory failure with hypoxia; I82.401 Acute embolism and thrombosis of unspecified deep veins of right lower extremity; I10 Essential (primary) hypertension; M10.9 Gout, unspecified; Z86.73 Personal history of transient ischemic attack (TIA), and cerebral infarction without residual deficits; F17.200 Nicotine dependence, unspecified, uncomplicated; Z83.3 Family history of diabetes mellitus; Z82.49 Family history of ischemic heart disease and other diseases of the circulatory system; Z71.6 Tobacco abuse counseling; E66.9 Obesity, unspecified; Z68.35 Body mass index [BMI] 35.0-35.9, adult
CPT/HCPCS: 36415; 37211; 37214; 51702; 71010; 71275; 76937; 80048; 80061; 82962; 83880; 84484; 85014; 85018; 85025; 85049; 85379; 85384; 85520; 85610; 85730; 86850; 86900; 86901; 90732; 93005; 93010; 93306; 93970; 94640; C1757; C1769; C1887; C1894; J0360; J0690; J1170; J1644; J2250; J2270; J2997; J3010; J7030; J7050; Q9967

== ENCOUNTER 2017-03-26 18:34 | Emergency (ER) | payer SELFPAY ==
[2017-03-26 19:18] LABS: Basophils % (Auto) 0.9 % (0.0-1.8); Eosinophils % (Auto) 1.2 % (0.0-4.3); Hematocrit 42.7 % (35.5-45.6); Hemoglobin 14.3 gm/dl (11.8-15.2); Mean Corpuscular HGB Conc 33 % (32-34); Mean Corpuscular Hemoglobin 29 pg (28-32); Mean Corpuscular Volume 86 fl (84-94); Platelet Count 210 K/mm3 (140-440); Red Blood Count 4.97 M/mm3 (3.65-5.03); Red Cell Distribution Width 15.2 % (13.2-15.2); White Blood Count 5.6 K/mm3 (4.5-11.0)
[2017-03-26 19:25] LABS: INR 1.12 (0.87-1.13)
[2017-03-26 19:26] LABS: Partial Thromboplastin Time 33.9 Sec. (24.2-36.6)
[2017-03-26 19:38] LABS: Creatine Kinase MB 3.2 ng/mL (0.0-4.0)
[2017-03-26 19:39] LABS: Anion Gap 18 mmol/L; Blood Urea Nitrogen 15 mg/dL (9-20); Calcium 9.2 mg/dL (8.4-10.2); Carbon Dioxide 22 mmol/L (22-30); Chloride 102.4 mmol/L (98-107); Creatine Kinase 365 units/L (55-170); Glucose 93 mg/dL (75-100); Potassium 4.1 mmol/L (3.6-5.0); Sodium 138 mmol/L (137-145)
--- NOTE | 2017-03-26 19:48 | XRay Report ---
FINAL REPORT EXAM: XR CHEST ROUTINE 2V HISTORY: Dyspnea TECHNIQUE: Two view chest PA and lateral PRIORS: None. FINDINGS: Cardiac and mediastinal contours are unremarkable. There is linear scarring noted at the left lower lobe.. No pleural fluid collection seen. Pulmonary vasculature is unremarkable. IMPRESSION: Mild area of linear scarring left lower lobe No acute findings in the chest
--- NOTE | 2017-03-27 03:08 | Emergency Department Report ---
ED Shortness of Breath HPI - General Chief Complaint: Dyspnea/Respdistress Stated Complaint: LEGS SWOLLEN/NUMBNESS/SOB Time Seen by Provider: 03/27/17 02:56 Source: patient Mode of arrival: Ambulatory Limitations: No Limitations - History of Present Illness Initial Comments: 56-year-old male coming with shortness of breath for the last few days he stated his shortness of breath get worse when he woke for a distance. Denied any chest pain or syncope at this moment. Was diagnosed with bilateral PE last month. He is on so Xarolleta. Complaint: shortness of breath - Related Data Home Medications Medication Instructions Recorded Confirmed Last Taken Ascorbic Acid [Vitamin C] 500 mg PO QDAY 02/02/17 02/02/17 02/01/17 Calcium Carbonate [Calcium] 600 mg PO DAILY 02/02/17 02/02/17 02/01/17 Lactobacillus Acidophilus 1 each PO DAILY 02/02/17 02/02/17 02/01/17 [Probiotic] Methylcellulose [Fiber] 500 mg PO DAILY 02/02/17 02/02/17 02/01/17 Vitamin E (Dl,Tocopheryl Acet) 100 unit PO DAILY 02/02/17 02/02/17 02/01/17 [Vitamin E] Previous Rx's Medication Instructions Recorded Last Taken Type Apixaban [Eliquis] 2 tab PO BID #28 tablet 02/07/17 Unknown Rx Apixaban [Eliquis] 5 mg PO BID #42 tablet 02/07/17 Unknown Rx HYDROcodone/APAP 5-325 [[place] 1 each PO Q6H PRN #20 tablet 02/07/17 Unknown Rx 5-325 mg TAB] Lisinopril [Zestril TAB] 40 mg PO DAILY #30 tablet 02/07/17 Unknown Rx amLODIPine [Norvasc] 10 mg PO DAILY #30 tablet 02/07/17 Unknown Rx Allergies Allergy/AdvReac Type Severity Reaction Status Date / Time No Known Allergies Allergy Verified 02/02/17 07:29 ED Review of Systems ROS: Stated complaint: LEGS SWOLLEN/NUMBNESS/SOB Other details as noted in HPI Comment: All other systems reviewed and negative Constitutional: denies: chills, fever Respiratory: shortness of breath, SOB with exertion. denies: cough, SOB at rest Cardiovascular: denies: chest pain, palpitations Gastrointestinal: denies: abdominal pain, nausea Neurological: denies: headache, weakness ED Past Medical Hx - Past Medical History Previous Medical History?: Yes Hx Hypertension: Yes Hx Deep Vein Thrombosis: Yes Hx Pulmonary Embolism: Yes Hx GERD: Yes Hx Asthma: Yes Additional medical history: gout,bilateral PE on 02/02/2017. TIA - Surgical History Past Surgical History?: No - Social History Smoking Status: Former Smoker Substance Use Type: None - Medications Home Medications: Home Medications Medication Instructions Recorded Confirmed Last Taken Type Ascorbic Acid [Vitamin C] 500 mg PO QDAY 02/02/17 02/02/17 02/01/17 History Calcium Carbonate [Calcium] 600 mg PO DAILY 02/02/17 02/02/17 02/01/17 History Lactobacillus Acidophilus 1 each PO DAILY 02/02/17 02/02/17 02/01/17 History [Probiotic] Methylcellulose [Fiber] 500 mg PO DAILY 02/02/17 02/02/17 02/01/17 History Vitamin E (Dl,Tocopheryl Acet) 100 unit PO DAILY 02/02/17 02/02/17 02/01/17 History [Vitamin E] Apixaban [Eliquis] 2 tab PO BID #28 tablet 02/07/17 Unknown Rx Apixaban [Eliquis] 5 mg PO BID #42 tablet 02/07/17 Unknown Rx HYDROcodone/APAP 5-325 [[place] 1 each PO Q6H PRN #20 tablet 02/07/17 Unknown Rx 5-325 mg TAB] Lisinopril [Zestril TAB] 40 mg PO DAILY #30 tablet 02/07/17 Unknown Rx amLODIPine [Norvasc] 10 mg PO DAILY #30 tablet 02/07/17 Unknown Rx ED Physical Exam - General Limitations: No Limitations General appearance: alert, in no apparent distress - Head Head exam: Present: atraumatic, normocephalic - ENT ENT exam: Present: normal exam - Neck Neck exam: Present: normal inspection - Respiratory Respiratory exam: Present: normal lung sounds bilaterally. Absent: respiratory distress, wheezes, rales, rhonchi, stridor, accessory muscle use, decreased breath sounds - Cardiovascular Cardiovascular Exam: Present: regular rate, normal rhythm, normal heart sounds - GI/Abdominal GI/Abdominal exam: Present: soft. Absent: tenderness, guarding, rebound - Extremities Exam Extremities exam: Present: normal inspection, calf tenderness. Absent: tenderness, normal capillary refill, pedal edema, joint swelling - Back Exam Back exam: Present: normal inspection - Neurological Exam Neurological exam: Present: alert, oriented X3, CN II-XII intact, normal gait - Skin Skin exam: Present: warm, normal color ED Course Vital Signs 03/26/17 03/27/17 03/27/17 18:40 00:13 01:24 Temperature 99.1 F 98.7 F 98.3 F Pulse Rate 96 H 76 77 Respiratory 20 20 22 Rate Blood Pressure 140/111 154/113 Blood Pressure 160/104 [Left] O2 Sat by Pulse 100 100 98 Oximetry 03/27/17 05:06 Temperature 98.4 F Pulse Rate 62 Respiratory 16 Rate Blood Pressure Blood Pressure 134/90 [Left] O2 Sat by Pulse 98 Oximetry - Reevaluation(s) Reevaluation #1: 03/27/17 05:33 Patient is sleeping, easily aroused, in no distress, inform about his chest CTA was no evidence of new pulmonary embolism. ED Medical Decision Making - Lab Data Result diagrams: 03/26/17 19:01 03/26/17 19:01 Critical care attestation.: If time is entered above; I have spent that time in minutes in the direct care of this critically ill patient, excluding procedure time. ED Disposition Clinical Impression: Shortness of breath Disposition: -01 TO HOME OR SELFCARE Is pt being admited?: No Does the pt Need Aspirin: No Condition: Stable Instructions: Dyspnea (ED) Referrals: PRIMARY CARE, [Primary Care Provider] - 3-5 Days
--- NOTE | 2017-03-27 04:31 | Cat Scan Report ---
FINAL REPORT EXAM: CT ANGIO CHEST HISTORY: CHEST PAIN WITH SYNCOPE, PREVIOUS PE. TECHNIQUE: CT angiogram of the chest was performed, with axial images obtained after the intravenous administration of contrast. Sagittal and coronal standard and 360 degree rotatory coronal oblique reformatted images were also obtained. Comparison is made with prior exam 02/06/2017. FINDINGS: The heart is normal in size. The thoracic aorta is normal in caliber, without aneurysm or dissection. Compared to prior exam, there has been moderate partial interval resolution of previously identified extensive bilateral pulmonary emboli. Currently, there are no discrete filling defects seen in the main pulmonary artery or right and left main pulmonary arteries. There is mild residual pulmonary embolus seen within the central perihilar pulmonary arterial trunk of the right upper lobe, decreased compared to prior exam. Minimal linear strands of residual filling defects are also seen within pulmonary arterial branches extending to the posterior left lower lobe, posterior right lower lobe, and lateral right lower lobe. No other definite filling defects are seen in the remainder of the proximal segmental pulmonary arteries. There is no mediastinal or hilar lymphadenopathy. Examination of the lung parenchyma demonstrates scattered foci of mild platelike scarring and/or atelectasis both anterior midlung carty, stable. There is also new minimal linear scarring in the right anterior lung base. Minimal dependent changes are seen posteriorly. There is no pleural or pericardial effusion. The trachea and visualized proximal airways are patent. The visualized upper abdomen is unremarkable. Mild to moderate spondylotic changes are seen in the spine. IMPRESSION: 1. Marked interval improvement in bilateral extensive pulmonary emboli compared to 02/06/2017, with mild residual filling defects seen in right upper lobe and bilateral lower lobe pulmonary arterial branches, as described. 2. Scattered areas of minimal linear scarring and/or atelectasis in the lungs. No focal infiltrate or effusion.
[2017-03-27 05:07] VITALS: BP 134/90
== END 2017-03-27 07:05 | disposition home or self-care (01) ==
LOC: ED 18:34
DX: R06.02 Shortness of breath (principal); I10 Essential (primary) hypertension; G43.909 Migraine, unspecified, not intractable, without status migrainosus
CPT/HCPCS: 36415; 71020; 71275; 80048; 82550; 82553; 83880; 84484; 85025; 85610; 85730; 93005; 93010; 99284; Q9967

== ENCOUNTER 2017-08-02 09:18 | Emergency (ER) | payer MEDICAID, OTHER, SELFPAY ==
[2017-08-02 10:43] VITALS: BP 128/99
[2017-08-02] MEDS ORDERED: ULTRAM PO ONE (11:56)
[2017-08-02] MEDS ORDERED: DELTASONE PO ONE (11:56)
--- NOTE | 2017-08-02 12:01 | Emergency Department Report ---
ED Upper Extremity Inj HPI - General Chief Complaint: Extremity Injury, Upper Stated Complaint: LEFT ELBOW PAIN Time Seen by Provider: 08/02/17 11:23 Source: patient Mode of arrival: Ambulatory Limitations: No Limitations - History of Present Illness Initial Comments: Patient 56-year-old -Stateless male with history of gout who presents left posterior elbow pain and swelling x 5 days pt on allopurinol po daily however out of medication for past month, pt denies fall injury or trauma, no decreased with rom no numbness weakness or tingling. Complaint: Injury to:: left, elbow Onset/Timin -: Sudden, week(s) Other Extremity Injury: Elbow: Left Other Injuries: none Handedness: left Place: home Severity scale (0 -10): 5 Improves With: none Worsens With: movement of extremity Context: other (hx of gout same location same intensity ) - Related Data Home Medications Medication Instructions Recorded Confirmed Last Taken Ascorbic Acid [Vitamin C] 500 mg PO QDAY 02/02/17 02/02/17 02/01/17 Calcium Carbonate [Calcium] 600 mg PO DAILY 02/02/17 02/02/17 02/01/17 Lactobacillus Acidophilus 1 each PO DAILY 02/02/17 02/02/17 02/01/17 [Probiotic] Methylcellulose [Fiber] 500 mg PO DAILY 02/02/17 02/02/17 02/01/17 Vitamin E (Dl,Tocopheryl Acet) 100 unit PO DAILY 02/02/17 02/02/17 02/01/17 [Vitamin E] Previous Rx's Medication Instructions Recorded Last Taken Type Apixaban [Eliquis] 2 tab PO BID #28 tablet 02/07/17 Unknown Rx Apixaban [Eliquis] 5 mg PO BID #42 tablet 02/07/17 Unknown Rx HYDROcodone/APAP 5-325 [[place] 1 each PO Q6H PRN #20 tablet 02/07/17 Unknown Rx 5-325 mg TAB] Lisinopril [Zestril TAB] 40 mg PO DAILY #30 tablet 02/07/17 Unknown Rx amLODIPine [Norvasc] 10 mg PO DAILY #30 tablet 02/07/17 Unknown Rx Allopurinol 100 mg PO DAILY #30 tablet 08/02/17 Unknown Rx Indomethacin [Indocin] 25 mg PO Q8H #21 capsule 08/02/17 Unknown Rx predniSONE [Deltasone] 40 mg PO QDAY #10 tablet 08/02/17 Unknown Rx Allergies Allergy/AdvReac Type Severity Reaction Status Date / Time No Known Allergies Allergy Verified 02/02/17 07:29 ED Review of Systems ROS: Stated complaint: LEFT ELBOW PAIN Other details as noted in HPI Constitutional: denies: chills, fever Eyes: denies: eye pain, eye discharge, vision change ENT: denies: ear pain, throat pain Respiratory: denies: cough, shortness of breath, wheezing Cardiovascular: denies: chest pain, palpitations Endocrine: no symptoms reported Gastrointestinal: denies: abdominal pain, nausea, diarrhea Genitourinary: denies: urgency, dysuria Musculoskeletal: arthralgia Skin: denies: rash, lesions Neurological: denies: headache, weakness, paresthesias Psychiatric: denies: anxiety, depression Hematological/Lymphatic: denies: easy bleeding, easy bruising ED Past Medical Hx - Past Medical History Hx Hypertension: Yes Hx Deep Vein Thrombosis: Yes Hx Pulmonary Embolism: Yes Hx GERD: Yes Hx Asthma: Yes Additional medical history: gout,bilateral PE on 02/02/2017. TIA - Social History Smoking Status: Former Smoker Substance Use Type: Alcohol - Medications Home Medications: Home Medications Medication Instructions Recorded Confirmed Last Taken Type Ascorbic Acid [Vitamin C] 500 mg PO QDAY 02/02/17 02/02/17 02/01/17 History Calcium Carbonate [Calcium] 600 mg PO DAILY 02/02/17 02/02/17 02/01/17 History Lactobacillus Acidophilus 1 each PO DAILY 02/02/17 02/02/17 02/01/17 History [Probiotic] Methylcellulose [Fiber] 500 mg PO DAILY 02/02/17 02/02/17 02/01/17 History Vitamin E (Dl,Tocopheryl Acet) 100 unit PO DAILY 02/02/17 02/02/17 02/01/17 History [Vitamin E] Apixaban [Eliquis] 2 tab PO BID #28 tablet 02/07/17 Unknown Rx Apixaban [Eliquis] 5 mg PO BID #42 tablet 02/07/17 Unknown Rx HYDROcodone/APAP 5-325 [[place] 1 each PO Q6H PRN #20 tablet 02/07/17 Unknown Rx 5-325 mg TAB] Lisinopril [Zestril TAB] 40 mg PO DAILY #30 tablet 02/07/17 Unknown Rx amLODIPine [Norvasc] 10 mg PO DAILY #30 tablet 02/07/17 Unknown Rx Allopurinol 100 mg PO DAILY #30 tablet 08/02/17 Unknown Rx Indomethacin [Indocin] 25 mg PO Q8H #21 capsule 08/02/17 Unknown Rx predniSONE [Deltasone] 40 mg PO QDAY #10 tablet 08/02/17 Unknown Rx ED Physical Exam - General Limitations: No Limitations General appearance: alert, in no apparent distress - Head Head exam: Present: atraumatic, normocephalic - Eye Eye exam: Present: normal appearance - ENT ENT exam: Present: mucous membranes moist - Neck Neck exam: Present: normal inspection, full ROM. Absent: lymphadenopathy, thyromegaly - Respiratory Respiratory exam: Present: normal lung sounds bilaterally. Absent: respiratory distress - Cardiovascular Cardiovascular Exam: Present: regular rate, normal rhythm. Absent: systolic murmur, diastolic murmur, rubs, gallop - GI/Abdominal GI/Abdominal exam: Present: soft, normal bowel sounds - Rectal Rectal exam: Present: deferred - Extremities Exam Extremities exam: Present: full ROM, tenderness (left posterior elbow ), normal capillary refill, joint swelling (no fever no erythema no decreased rom ). Absent: pedal edema, calf tenderness - Expanded Upper Extremity Exam Left Elbow exam: Present: full ROM, tenderness, swelling, pain w/ pronation/ supination. Absent: abrasion, laceration, ecchymosis, deformity, crepidus, erythema, effusion, tenderness over radial head Forearm Wrist exam: Present: normal inspection, full ROM Hand Wrist exam: Present: normal inspection, full ROM Neuro motor exam: Present: wrist extension intact, thumb opposition intact, thumb IP flexion intact, thumb adduction intact, fingers 2-5 abduction intact Neurosensory exam: Present: 2-point discrimination, radial nerve intact, ulnar nerve intact, median nerve intact Vascular: Present: normal capillary refill, radial pulse, brachial pulse, ulnar pulse. Absent: vascular compromise, Pallo, pulse deficit radial art, pulse deficit ulnar art, pulse deficit brachial art - Back Exam Back exam: Present: normal inspection, full ROM. Absent: tenderness - Neurological Exam Neurological exam: Present: alert, oriented X3, CN II-XII intact, normal gait, reflexes normal. Absent: motor sensory deficit - Psychiatric Psychiatric exam: Present: normal affect, normal mood - Skin Skin exam: Present: warm, dry, intact, normal color. Absent: rash ED Course Vital Signs 08/02/17 10:33 Temperature 98.5 F Pulse Rate 56 L Respiratory 20 Rate Blood Pressure 128/99 [Right] O2 Sat by Pulse 98 Oximetry ED Medical Decision Making - Medical Decision Making this is a 56 y/o aam with hx of gout arthritis who presents for left elbow posterior elbow pain and aching to usual location usual intensity usual duration ,pt denies fall injury fall or trauma, pt states out of allopurinol for over past month , exam: rom intact no weakness no bursitis no fever pain with palpation, there is no numbness tingling or paresthesia , plan: prednisone , indomethacin x 7 days then restart allopurinol po,pt will follow up with pcp in 2-3 days, pt verbalize agreement and understanding of same. Critical care attestation.: If time is entered above; I have spent that time in minutes in the direct care of this critically ill patient, excluding procedure time. ED Disposition Clinical Impression: Gout of left elbow Qualifiers: Gout etiology: idiopathic Chronicity: acute Qualified Code(s): M10.022 - Idiopathic gout, left elbow Disposition: - TO HOME OR SELFCARE Is pt being admited?: No Does the pt Need Aspirin: No Condition: Good Instructions: Acute Gouty Arthritis (ED) Prescriptions: Allopurinol 100 mg PO DAILY #30 tablet Indomethacin [Indocin] 25 mg PO Q8H #21 capsule predniSONE [Deltasone] 40 mg PO QDAY #10 tablet Forms: Work/School Release Form(ED) Time of Disposition: 12:11
== END 2017-08-02 12:21 | disposition home or self-care (01) ==
LOC: ED 09:18
DX: M10.022 Idiopathic gout, left elbow (principal); I10 Essential (primary) hypertension; I82.409 Acute embolism and thrombosis of unspecified deep veins of unspecified lower extremity; K21.9 Gastro-esophageal reflux disease without esophagitis; I26.99 Other pulmonary embolism without acute cor pulmonale; J45.909 Unspecified asthma, uncomplicated; Z87.891 Personal history of nicotine dependence
CPT/HCPCS: 99282; J7512

== ENCOUNTER 2018-04-05 07:26 | Emergency (ER) | payer MEDICAID, SELFPAY ==
[2018-04-05 07:36] VITALS: BP 123/70
[2018-04-05] MEDS ORDERED: DILAUDID IM ONE (10:54)
--- NOTE | 2018-04-05 10:56 | Emergency Department Report ---
ED General Adult HPI - General Chief complaint: Fall Stated complaint: KNEE/BACK PAIN Time Seen by Provider: 04/05/18 10:46 Source: patient, RN notes reviewed, old records reviewed Mode of arrival: Wheelchair Limitations: Physical Limitation - History of Present Illness Initial comments: This is a 57-year-old gentleman with a past medical history of heart disease, hypertension, gout, DVT 2, currently on systemic anticoagulation. Patient reports a mechanical fall 4 days ago on Tuesday, reports hitting his right knee, right hip, lower back and then head. Prior to the fall, he was not having any complaints. After the fall, he has achy and swollen right knee pain , achy right hip pain, achy lower back pain, and a minimal headache. His pain does not radiate anywhere, increases with palpation and decreases with rest. There is no midline neck pain, there is no syncope, no chest pain, no abdominal pain, no extremity weakness, numbness, no bladder or bowel retention or incontinence, and there is no saddle anesthesia. -: Sudden Location: head, back, right, lower extremity Radiation: non-radiation Quality: aching Consistency: intermittent Improves with: rest Worsens with: movement Associated Symptoms: denies: confusion, chest pain, cough, diaphoresis, fever/ chills, loss of appetite, malaise, nausea/vomiting, rash, seizure, shortness of breath, syncope, weakness - Related Data Home Medications Medication Instructions Recorded Confirmed Last Taken Ascorbic Acid [Vitamin C] 500 mg PO QDAY 02/02/17 02/02/17 02/01/17 Calcium Carbonate [Calcium] 600 mg PO DAILY 02/02/17 02/02/17 02/01/17 Lactobacillus Acidophilus 1 each PO DAILY 02/02/17 02/02/17 02/01/17 [Probiotic] Methylcellulose [Fiber] 500 mg PO DAILY 02/02/17 02/02/17 02/01/17 Vitamin E (Dl,Tocopheryl Acet) 100 unit PO DAILY 02/02/17 02/02/17 02/01/17 [Vitamin E] Previous Rx's Medication Instructions Recorded Last Taken Type Apixaban [Eliquis] 2 tab PO BID #28 tablet 02/07/17 Unknown Rx Apixaban [Eliquis] 5 mg PO BID #42 tablet 02/07/17 Unknown Rx HYDROcodone/APAP 5-325 [[place] 1 each PO Q6H PRN #20 tablet 02/07/17 Unknown Rx 5-325 mg TAB] Lisinopril [Zestril TAB] 40 mg PO DAILY #30 tablet 02/07/17 Unknown Rx amLODIPine [Norvasc] 10 mg PO DAILY #30 tablet 02/07/17 Unknown Rx Allopurinol 100 mg PO DAILY #30 tablet 08/02/17 Unknown Rx Indomethacin [Indocin] 25 mg PO Q8H #21 capsule 08/02/17 Unknown Rx predniSONE [Deltasone] 40 mg PO QDAY #10 tablet 08/02/17 Unknown Rx Acetaminophen [Tylenol Arthritis] 650 mg PO Q6HR PRN #30 tablet.er 04/05/18 Unknown Rx oxyCODONE [Roxicodone] 5 mg PO Q6HR PRN #10 tablet 04/05/18 Unknown Rx Allergies Allergy/AdvReac Type Severity Reaction Status Date / Time No Known Allergies Allergy Verified 04/05/18 07:34 ED Review of Systems ROS: Stated complaint: KNEE/BACK PAIN Other details as noted in HPI Constitutional: denies: fever Eyes: denies: eye discharge ENT: denies: epistaxis Respiratory: denies: cough Cardiovascular: denies: chest pain Gastrointestinal: denies: abdominal pain Musculoskeletal: back pain, joint swelling, arthralgia, myalgia Neurological: headache. denies: weakness, numbness, paresthesias, confusion ED Past Medical Hx - Past Medical History Hx Hypertension: Yes Hx Deep Vein Thrombosis: Yes Hx Pulmonary Embolism: Yes Hx GERD: Yes Hx Asthma: Yes Additional medical history: gout,bilateral PE on 02/02/2017. TIA - Surgical History Hx Coronary Stent: Yes - Social History Smoking Status: Never Smoker Substance Use Type: None - Medications Home Medications: Home Medications Medication Instructions Recorded Confirmed Last Taken Type Ascorbic Acid [Vitamin C] 500 mg PO QDAY 02/02/17 02/02/17 02/01/17 History Calcium Carbonate [Calcium] 600 mg PO DAILY 02/02/17 02/02/17 02/01/17 History Lactobacillus Acidophilus 1 each PO DAILY 02/02/17 02/02/17 02/01/17 History [Probiotic] Methylcellulose [Fiber] 500 mg PO DAILY 02/02/17 02/02/17 02/01/17 History Vitamin E (Dl,Tocopheryl Acet) 100 unit PO DAILY 02/02/17 02/02/17 02/01/17 History [Vitamin E] Apixaban [Eliquis] 2 tab PO BID #28 tablet 02/07/17 Unknown Rx Apixaban [Eliquis] 5 mg PO BID #42 tablet 02/07/17 Unknown Rx HYDROcodone/APAP 5-325 [[place] 1 each PO Q6H PRN #20 tablet 02/07/17 Unknown Rx 5-325 mg TAB] Lisinopril [Zestril TAB] 40 mg PO DAILY #30 tablet 02/07/17 Unknown Rx amLODIPine [Norvasc] 10 mg PO DAILY #30 tablet 02/07/17 Unknown Rx Allopurinol 100 mg PO DAILY #30 tablet 08/02/17 Unknown Rx Indomethacin [Indocin] 25 mg PO Q8H #21 capsule 08/02/17 Unknown Rx predniSONE [Deltasone] 40 mg PO QDAY #10 tablet 08/02/17 Unknown Rx Acetaminophen [Tylenol Arthritis] 650 mg PO Q6HR PRN #30 tablet.er 04/05/18 Unknown Rx oxyCODONE [Roxicodone] 5 mg PO Q6HR PRN #10 tablet 04/05/18 Unknown Rx ED Physical Exam - General Limitations: Physical Limitation General appearance: alert, in no apparent distress - Head Head exam: Present: atraumatic, normocephalic - Eye Eye exam: Present: normal appearance, PERRL, EOMI, other (visual acuity intact to finger counting, color perception, reading at a close distance). Absent: nystagmus - ENT ENT exam: Present: normal exam, normal orophraynx, mucous membranes moist, normal external ear exam - Neck Neck exam: Present: normal inspection, full ROM. Absent: tenderness, meningismus - Respiratory Respiratory exam: Present: normal lung sounds bilaterally. Absent: respiratory distress - Cardiovascular Cardiovascular Exam: Present: regular rate, normal rhythm, normal heart sounds. Absent: bradycardia, tachycardia, irregular rhythm, systolic murmur, diastolic murmur, rubs, gallop - GI/Abdominal GI/Abdominal exam: Present: soft, normal bowel sounds. Absent: distended, tenderness, guarding, rebound, rigid, pulsatile mass - Rectal Rectal exam: Present: deferred - Extremities Exam Extremities exam: Present: tenderness (the right knee is diffusely swollen and tender. There is mild pain with passive range of motion. There is no redness, pus, streaking.), normal capillary refill, other (the bilateral upper extremities have full range of motion and they are nontender. The pelvis is stable, with minimal right-sided iliac crest tenderness. There is full active and passive range of motion of the left lower extremity. 2+ pulses noted in the bilateral upper, lower extremities. The compartments are soft.). Absent: normal inspection, pedal edema, joint swelling, calf tenderness - Back Exam Back exam: Present: normal inspection, full ROM, paraspinal tenderness. Absent : tenderness, CVA tenderness (R), vertebral tenderness - Neurological Exam Neurological exam: Present: alert, oriented X3, CN II-XII intact, other ( Extraocular movements intact. Tongue midline. No facial droop. Facial sensation intact to light touch in the V1, V2, V3 distribution bilaterally. 5 and 5 strength in 4 extremities.. Sensation is intact to light touch in 4 extremities.). Absent: motor sensory deficit (dorsi and plantar flexion are intact in the bilateral feet. Extensor hallucis longus is intact in the bilateral feet. Downgoing plantar reflexes bilaterally. Sensation intact to light touch and pinprick in the bilateral lower extremities.) - Psychiatric Psychiatric exam: Present: normal affect, normal mood - Skin Skin exam: Present: warm, dry, intact, normal color. Absent: rash ED Course Vital Signs 04/05/18 04/05/18 07:34 13:26 Temperature 99.3 F Pulse Rate 99 H 87 Respiratory 16 17 Rate Blood Pressure 123/70 O2 Sat by Pulse 96 98 Oximetry - Reevaluation(s) Reevaluation #1: 04/05/18 13:[address] scan of the brain is negative. Neurologic examination is unchanged. Patient to be discharged with appropriate anticipatory guidance. ED Medical Decision Making - Lab Data Vital Signs 04/05/18 07:34 Temperature 99.3 F Pulse Rate 99 H Respiratory 16 Rate Blood Pressure 123/70 O2 Sat by Pulse 96 Oximetry - Radiology Data Radiology results: report reviewed, image reviewed Noncontrast CT scan of the brain: X-ray of the pelvis: Negative for acute disease X-ray of the right knee: No fracture or dislocation, large effusion, and soft tissue swelling - Medical Decision Making Differential diagnosis, including not limited to: Knee fracture, dislocation, sprain, strain, intracranial injury secondary to mechanical fall, mechanical lower back pain Assessment and plan: 57-year-old gentleman status post mechanical fall on systemic anticoagulation. GCS of 15. NIH score of 0.Patient is clinically sober at this time. The cervical spine is cleared through nexus and [place] c spine rule Has an obvious right-sided knee effusion on physical exam. No indication of epidural compression syndrome at this time. A noncontrast CT scan of the brain was negative, and was acquired given history of head trauma on systemic anticoagulation. Patient will be made nonweightbearing on the right leg, he will be given crutches, knee immobilizer, and he is instructed to follow up with outpatient orthopedics. Critical care attestation.: If time is entered above; I have spent that time in minutes in the direct care of this critically ill patient, excluding procedure time. ED Disposition Clinical Impression: Right knee pain, Fall Disposition: DC- TO HOME OR SELFCARE Is pt being admited?: No Does the pt Need Aspirin: No Condition: Stable Additional Instructions: Take the pain medication as needed/directed. Rest and avoid heavy lifting and strenuous physical activity. Use crutches as directed, remain nonweightbearing on the right lower extremity, and follow-up with an orthopedist within the next 3-5 days. X-ray of the knee suggested fluid/soft tissue swelling, would suggest internal injury to ligaments and/or connective tissue. Not following up with orthopedics as recommended may result in delaying definitive diagnosis, etc. and can cause disability, pain and loss of quality of life. Continue current outpatient medications otherwise. Return to the ER right away with new pain, worsening pain, migration of pain, projectile vomiting, change in mental status, confusion, inability to tolerate liquid feeds. Prescriptions: Acetaminophen [Tylenol Arthritis] 650 mg PO Q6HR PRN #30 tablet.er PRN Reason: Pain oxyCODONE [Roxicodone] 5 mg PO Q6HR PRN #10 tablet PRN Reason: Pain Referrals: TERRENCE ESCOBAR MD [Primary Care Provider] - 3-5 Days SHAMAR GURROLA MD [Staff Physician] - 3-5 Days [facility] [Provider Group] - 3-5 Days
--- NOTE | 2018-04-05 11:55 | XRay Report ---
RIGHT HIP, 2 views: History: Right hip pain after fall. The bony architecture is intact without evidence of fracture or dislocation. No significant soft tissue abnormality is seen. IMPRESSION: Right hip within normal limits.
--- NOTE | 2018-04-05 11:56 | XRay Report ---
RIGHT KNEE, 3 views: History: Right knee pain after fall. A large joint effusion extends to the suprapatellar bursa. Normal bone mineralization. No evidence for fracture, bone lesion or significant degenerative changes. IMPRESSION: Large right knee effusion. No bony abnormality is detected. If internal derangement is suspected, MRI right knee without contrast should provide the most information.
--- NOTE | 2018-04-05 12:22 | Cat Scan Report ---
CT HEAD WITHOUT CONTRAST: HISTORY: Headache, fall on blood thinners. TECHNIQUE: Sequential 2.5mm CT images. COMPARISON: none. FINDINGS: Cerebral Parenchyma: Within normal limits. Cerebellum: Within normal limits. Brainstem: Within normal limits. Ventricles: Normal. Sella: Normal. Extra-axial spaces: Normal. Basal Cisterns: Normal. Intracranial Hemorrhage: None. Midline Shift: None. Calvarium: Normal. Sinuses: Normal. Mastoid Air Cells: Normal. Visualized Orbits: Normal. IMPRESSION: Cranial CT scan within normal limits.
== END 2018-04-05 13:26 | disposition home or self-care (01) ==
LOC: ED 07:26
DX: M25.461 Effusion, right knee (principal); I11.0 Hypertensive heart disease with heart failure; M10.9 Gout, unspecified; K21.9 Gastro-esophageal reflux disease without esophagitis; J45.909 Unspecified asthma, uncomplicated; Z86.73 Personal history of transient ischemic attack (TIA), and cerebral infarction without residual deficits; Z86.718 Personal history of other venous thrombosis and embolism; Z86.711 Personal history of pulmonary embolism
CPT/HCPCS: 29505; 70450; 73502; 73562; 96372; 99284; J1170

== ENCOUNTER 2022-03-13 16:43 | Emergency (ER) | payer MEDICAID ==
[2022-03-13] MEDS ORDERED: methylPREDNISolone Sod Succinate 125 MG/2 ML INJ IV ONE (17:32)
[2022-03-13] MEDS ORDERED: SODIUM CHLORIDE 0.9% 1000 ML 1,000 ML IV ONE (17:32)
--- NOTE | 2022-03-13 17:34 | Emergency Department Report ---
HPI - General Chief Complaint: Allergic Reaction Time Seen by Provider: 03/13/22 17:24 - HPI HPI: 61-year-old male with a history of CAD with stent, bilateral pulmonary emboli/DVT currently on Eliquis, asthma, hypertension, gout presents to the hospital complaining of acute allergic reaction after being bitten by fire ants. Patient with playing football with his grandson and accidentally rolled in a fire ant hill sustaining multiple ant bites. Patient began to have generalized swelling, hives, shortness of breath with wheezing. Patient took Benadryl 50 mg prior to EMS arrival. BP recently 88/56 as per EMS and patient was diaphoretic shortness of breath upon EMS arrival. They administered albuterol 5 mg and 500 normal saline bolus with improvement in symptoms. Patient reports feeling better with some mild residual shortness of breath, hives with improved itching, and improved periorbital swelling. Patient did not receive steroids or epinephrine in route ED Past Medical Hx - Past Medical History Hx Hypertension: Yes Hx Deep Vein Thrombosis: Yes Hx Pulmonary Embolism: Yes Hx GERD: Yes Hx Asthma: Yes Additional medical history: gout,bilateral PE (s/p EKOS) 01/2017. TIA - Surgical History Hx Coronary Stent: Yes - Social History Smoking Status: Never Smoker Substance Use Type: None - Medications Home Medications: Home Medications Medication Instructions Recorded Confirmed Last Taken Type Ascorbic Acid [Vitamin C] 500 mg PO QDAY 02/02/17 02/02/17 02/01/17 History Calcium Carbonate [Calcium 600MG 600 mg PO DAILY 02/02/17 02/02/17 02/01/17 History TAB] Lactobacillus Acidophilus 1 each PO DAILY 02/02/17 02/02/17 02/01/17 History [Probiotic] Methylcellulose [Fiber] 500 mg PO DAILY 02/02/17 02/02/17 02/01/17 History Vitamin E (Dl,Tocopheryl Acet) 100 unit PO DAILY 02/02/17 02/02/17 02/01/17 History [Vitamin E] Apixaban [Eliquis] 2 tab PO BID #28 tablet 02/07/17 Unknown Rx Apixaban [Eliquis] 5 mg PO BID #42 tablet 02/07/17 Unknown Rx HYDROcodone/APAP 5-325 [[place] 1 each PO Q6H PRN #20 tablet 02/07/17 Unknown Rx 5-325 mg TAB] amLODIPine 10 mg PO DAILY #30 tablet 02/07/17 Unknown Rx lisinopriL [Zestril TAB] 40 mg PO DAILY #30 tablet 02/07/17 Unknown Rx Indomethacin [Indocin] 25 mg PO Q8H #21 capsule 08/02/17 Unknown Rx allopurinoL [Allopurinol] 100 mg PO DAILY #30 tablet 08/02/17 Unknown Rx predniSONE [Deltasone] 40 mg PO QDAY #10 tablet 08/02/17 Unknown Rx Acetaminophen [Tylenol Arthritis] 650 mg PO Q6HR PRN #30 tablet.er 04/05/18 Unknown Rx oxyCODONE [Roxicodone] 5 mg PO Q6HR PRN #10 tablet 04/05/18 Unknown Rx EPINEPHrine [Epipen] 0.3 mg IJ ONCE PRN #1 dose 03/13/22 Unknown Rx Famotidine [Pepcid] 20 mg PO BID #10 tablet 03/13/22 Unknown Rx diphenhydrAMINE [Benadryl CAP] 50 mg PO Q6HR PRN #20 capsule 03/13/22 Unknown Rx predniSONE [Deltasone] 40 mg PO DAILY 4 Days tab 03/13/22 Unknown Rx ED Review of Systems ROS: Stated complaint: ALLERGIC REACTION Other details as noted in HPI Comment: All other systems reviewed and negative Physical Exam - Physical Exam Vital Signs: Vital Signs 03/13/22 16:55 Pulse Rate 90 Respiratory 18 Rate Blood Pressure 88/56 [Left] O2 Sat by Pulse 88 Oximetry Physical Exam: General: No acute distress Head: Atraumatic Eyes: normal appearance ENT: Moist mucous membranes, no tongue swelling or posterior pharyngeal edema Neck: Normal appearance, no midline tenderness, no stridor Chest: Clear to auscultation bilaterally CV: Regular rate and rhythm Abdomen: Soft, normal bowel sounds, nontender, nondistended, no rebound or guarding Back: Normal inspection Extremity: Normal inspection, full range of motion Neuro: Alert O x 3, no facial asymmetry, speech clear, no gross motor sensory deficit Psych: Appropriate behavior Skin: Generalized high generalized hives and swelling ED Course Vital Signs 03/13/22 16:55 Pulse Rate 90 Respiratory 18 Rate Blood Pressure 88/56 [Left] O2 Sat by Pulse 88 Oximetry - Reevaluation(s) Reevaluation #1: 03/13/22 21:15 glucose 188 Reevaluation #2: 03/13/22 21:15 Patient reports feeling much better with ED treatment with near resolution of swelling and hives ED Medical Decision Making - EKG Data -: EKG Interpreted by Me (EMS EKG) EKG shows normal: sinus rhythm, ST-T waves (No STEMI) Rate: tachycardia (108) - EKG Data When compared to previous EKG there are: no significant change - Medical Decision Making 61-year-old male presents to the hospital acute allergic reaction after being bitten by multiple fire ants. Symptoms greatly improved with the ED observation with additional normal saline and Solu-Medrol. Patient received Benadryl prior to ED arrival. Blood pressure normal. Glucose 188 and patient reports a history of prediabetes. Patient will be discharged on medications for acute allergic reaction and warned that steroids may temporarily increase her blood glucose levels and Critical Care Time: No Critical care attestation.: If time is entered above; I have spent that time in minutes in the direct care of this critically ill patient, excluding procedure time. ED Disposition Clinical Impression: Acute allergic reaction, Fire ant bite Disposition: 01 HOME / SELF CARE / HOMELESS Is pt being admited?: No Does the pt Need Aspirin: No Condition: Stable Instructions: Allergies, Adult, [id number] Additional Instructions: Take the medication as prescribed. Follow-up with your doctor or doctor/clinic provided. Return if symptoms worsen as indicated by your discharge instructions. Prescriptions: diphenhydrAMINE [Benadryl CAP] 50 mg PO Q6HR PRN #20 capsule PRN Reason: Allergy Symptoms predniSONE [Deltasone] 40 mg PO DAILY 4 Days tab EPINEPHrine [Epipen] 0.3 mg IJ ONCE PRN #1 dose PRN Reason: Anaphylaxis Famotidine [Pepcid] 20 mg PO BID #10 tablet Referrals: [facility] [Provider Group] - 3-5 Days MAKSIM REBOLLEDO MD [Staff Physician] - 3-5 Days Time of Disposition: :22
[2022-03-13 21:56] VITALS: BP 121/83
== END 2022-03-13 21:56 | disposition home or self-care (01) ==
LOC: ED 16:43
DX: T78.49XA Other allergy, initial encounter (principal); I10 Essential (primary) hypertension; K21.9 Gastro-esophageal reflux disease without esophagitis; J45.909 Unspecified asthma, uncomplicated; I26.99 Other pulmonary embolism without acute cor pulmonale; Z86.718 Personal history of other venous thrombosis and embolism; X58.XXXA Exposure to other specified factors, initial encounter
CPT/HCPCS: 82962; 96361; 96374; 99283; J2930; J7030